=== PATIENT | male | born 1955 | race Caucasian/White ===

== ENCOUNTER 2024-12-19 08:03 | Emergency (ER) | payer MEDICARE, SELFPAY ==
--- OUTSIDE RECORDS SUMMARY | 2024-12-19 08:09 | XMS_ITS | Clinical Summary ---
Author Organization [facility] Address [address] [place] [address] Care Team Providers Care Nail Expert Name Role Phone Moreno Reyes MD Primary Care Provider [phone] Medications amLODIPine (NORVASC) 10 mg tablet Take 1 tablet (10 mg total) by mouth daily Active atorvastatin (LIPITOR) 40 mg tablet Take 2 tablets (80 mg total) by mouth nightly Active gabapentin (NEURONTIN) 400 mg capsule Take 1 capsule (400 mg total) by mouth 3 (three) times a day 11/11/2023 Active losartan (COZAAR) 100 mg tablet Take 1 tablet (100 mg total) by mouth daily 08/08/[address] (PROTONIX) 40 mg EC tablet Take 1 tablet (40 mg total) by mouth nightly Active Active Problems Problem Noted Date Diagnosed Date Discitis of lumbar region 11/13/2023 Assessment & Plan (11/26/2023 8:21 PM CDT): Improving with no current indication of infection, abx complete, continue PT/OT, supportive care, increase mobility as tolerated, f/u ID and neurology Continue PRN oxycodone and tylenol Assessment & Plan (11/15/2023 9:06 AM CDT): Has completed antibiotics and steroids. Now with residual weakness and we will be doing physical and occupational therapy. Infectious Disease follow up as planned. Nurse practitioner discontinued 1 pain medication but we will continue with others Assessment & Plan (11/13/2023 9:08 PM CDT): Repeat MRI prior to hospital DC with decrease in disc space fluid levels and no intervertebral inflammation, completed IV ceftriaxone and flagyl, not currently on abx, ID f/u scheduled, continue PT/OT, pain control Lumbar epidural injection at [facility] 11/03 Steroid taper complete Type 2 diabetes mellitus wit hout complication, without long-term current use of insulin 11/13/2023 Assessment & Plan (11/26/2023 8:22 PM CDT): Continue farxiga and bydureon per home meds, glucose logs reviewed and stable Assessment & Plan (11/15/2023 9:05 AM CDT): Stable for now. Continues on Farxiga and Bydureon. Might need to resume sliding scale or even basal insulin but we will see how he fares now that he is off steroids and antibiotics. Assessment & Plan (11/13/2023 9:12 PM CDT): Currently on bydureon, rybelsus and farxiga, glucose 344 this am with recent steroid taper, likely will need to resume SSI, consider basal dosing, monitor for now H/O gastric sleeve 11/13/2023 Assessment & Plan (11/13/2023 9:09 PM CDT): 2022; 120lb weight loss, intermittent diarrhea on cholestyramine, continue PT/OT Gastroesophageal reflux disease without esophagi tis 11/13/2023 Assessment & Plan (11/13/2023 9:08 PM CDT): Stable, continue PPI Mixed hyperlipidemia 11/13/2023 Assessment & Plan (11/13/2023 9:11 PM CDT): No statin noted on med list, LDL 71, total chol 139 one year ago, continue heart healthy diet with exercise as tolerated given HA1C of 11.3% MANAV (obstructive sleep apnea) 11/13/2023 Assessment & Plan (11/26/2023 8:22 PM CDT): Continue cpap per home settings Assessment & Plan (11/13/2023 9:13 PM CDT): Continue cpap per home settings History of cholecystectomy 11/13/2023 Assessment & Plan (11/26/2023 8:17 PM CDT): Stable, recovered, continue to monitor Assessment & Plan (11/15/2023 9:05 AM CDT): Recent cholecystectomy in September. Seems to be stable. Assessment & Plan (11/13/2023 9:10 PM CDT): Sudden onset RUQ pain, uncomplicated lap [place] 09/22, asymptomatic today with benign abd exam, f/u GI Depression with anxiety 11/13/2023 Assessment & Plan (11/26/2023 8:17 PM CDT): Stable on effexor per home med regimen, continue Assessment & Plan (11/15/2023 9:06 AM CDT): Possible exacerbation from recent illness and hospital and SNF stays. We will continue Effexor Assessment & Plan (11/13/2023 9:04 PM CDT): Continue effexor per home med, mood and affect appropriate today, sleeping well, pain is controlled, 6 supportive sisters Primary hypertension 11/13/2023 Assessment & Plan (11/26/2023 8:22 PM CDT): Stable on home meds norvasc and losartan, continue Assessment & Plan (11/15/2023 9:06 AM CDT): Stable. Continue pain control and continue amlodipine and losartan. Assessment & Plan (11/13/2023 9:15 PM CDT): Continue norvasc 10mg daily, losartan 100mg daily for BP goal <140/<90 Weakness of both legs 11/13/2023 Assessment & Plan (11/15/2023 9:06 AM CDT): Likely related to debility from recent hospital stays and diskitis. Physical and occupational therapy Assessment & Plan (11/13/2023 9:14 PM CDT): Improving, intermittent R gluteal pain/spasms, continue PT/OT, gabapentin, dilaudid, naproxen; plans to decrease dosage and frequency of dilaudid as tolerated, narcan avaialble Multiple falls 11/13/2023 Lumbar radiculopathy 11/13/2023 Assessment & Plan (11/26/2023 8:21 PM CDT): Improving with intermittent spasms to R buttock and thigh, continue PT/OT, supportive care, multimodal pain control H/O ventral hernia repair 11/13/2023 History of bilateral knee replacement 11/13/2023 Diarrhea due to drug 11/13/2023 Assessment & Plan (11/15/2023 9:07 AM CDT): Was likely due to antibiotics. Continue with Florastor and Questran. 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 Gender Identity Not on file Sexual Orientation Not on file Last Filed Vital Signs Vital Sign Reading Time Taken Comments Blood Pressure - - Pulse 76 11/15/2023 9:04 AM CDT Temperature - - Respiratory Rate 22 11/15/2023 9:04 AM CDT Oxygen Saturation - - Inhaled Oxygen Concentration - - Weight 105.7 kg (233 lb) 03/13/2024 11:55 AM EDITOR MANAGING NEWSPAPER Height 177.8 cm (5' 10) 03/13/2024 11:55 AM EDITOR MANAGING NEWSPAPER Body Mass Index 33.43 03/13/2024 11:55 AM EDITOR MANAGING NEWSPAPER Plan of Treatment Health Maintenance Due Date Last Done Comments Albumin Creatinine Ratio, Urine 1955 Colon Cancer Screening-Colonoscopy 1955 Depression Screening 1955 Fall Risk Assessment 1955 Hepatitis C Screening 1955 eGFR 1955 Dilated Eye Exam 1955 Foot Exam 1955 Lipid Panel 1955 DTaP/Tdap/Td Vaccine (1 - Tdap) 1965 Hepatitis B Screening 1972 Pneumococcal vaccine 65+ (1 of 2 - PCV) 1973 Zoster Vaccine (1 of 2) 2004 Well Visit 65+ 10/07/2019 Hemoglobin A1C 03/23/2024 09/21/2023 Influenza Vaccine (#1) 2024 11/21/2018, 2016 Abdominal Aortic Aneurysm (A AA) Screen Completed 10/30/2023, 10/03/2023, 09/20/2023 Insurance [employer] MEDICARE PPO [employer] PPO Care Teams Nail Expert Relationship Specialty Start Date End Date Moreno Reyes MD [address] [place] [address] PCP - General Family Medicine 12/21/23
--- OUTSIDE RECORDS SUMMARY | 2024-12-19 08:09 | XMS_ITS | Encounter Summary ---
Author Organization [facility] Address [address] [place] [address] Care Team Providers Care Dock Operator Name Role Phone Asif Leal MD Primary Care Provider [phone] Reason for Visit * Reason Onset Date Comments Lumbar Radiculopathy 10/31/[address] SNELL ON CELL Encounter Details Date Type Department Care Team (Late st Contact Info) Description 10/31/2023 Telephone [facility] Admitting [address] [place] [address] [place] [address] [facility] [address] [place] [address] Lumbar Radiculopathy (SPOKE W DR. SNELL ON CELL) Social History Tobacco Use Types Packs/Day Years Used Date Smoking Tobacco: Former Cigars Smokeless Tobacco: Never Comments:occassional Alcohol Use Standard Drinks/Week Comments Yes 0 (1 standard drink = 0.6 oz pur e alcohol) occasionally,RARE Feeling Safe Answer Date Recorded Are you in a relationship wi th someone who hurts you emotionally and/or physically? 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 diff 11/01/2023 11/01/2023 11/01/2023 6:21 PM CDT documented as of this encounter Care Teams Dock Operator Relationship Specialty Start Date End Date Asif Leal MD PCP - General Student in an Organized Health Care Education/Training Program 01/02/18 documented as of this encounter
--- OUTSIDE RECORDS SUMMARY | 2024-12-19 08:09 | XMS_ITS | Encounter Summary ---
Author Organization [facility] Address 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 [address] [email or web address] Peripheral Venous Study Patient: Lul Yoder Study ID: BLOOD FLOW STUDY Gender: Sania : 1955 Age: 52 years Race: 1 Room: Bed: Height: Study Date: October 01, 2008 Patient status: Outpatient Weight: Access. #: [id number] POC: Beef Specialist: Nayan Ordering: Consuelo Attending MD: Consuelo Michel MD: Consuelo SUMMARY: There was no evidence of deep vein thrombosis of the left lower extremity veins. COMPARISONS No previous study is available for comparison. HISTORY AND INDICATIONS: INDICATIONS: Left lower extremity pain. HISTORY: Risk factors and comorbidity: No previous deep vein thrombosis. PROCEDURE INFORMATION: PROCEDURE PERFORMED: Complete color duplex study with imaging and spectral analysis was performed on the left lower extremity venous system. PROCEDURE DETAIL: This was an outpatient procedure. LEFT DUPLEX DATA Common femoral Patency/occlusion: Patent Flow pattern: Phasic Competence test: Competent B-mode compressibility: Normal Augmentation: Present Comments: No evidence of echogenic material Superficial femoral Patency/occlusion: Patent Flow pattern: Phasic Competence test: Competent B-mode compressibility: Normal Augmentation: Present Comments: no evidence of echogenic material Popliteal Patency/occlusion: Patent Flow pattern: Phasic Competence test: Competent B-mode compressibility: Normal Augmentation: Present Comments: no evidence of echogenic material Peroneal Patency/occlusion: Patent Flow pattern: -- Competence test: -- B-mode compressibility: Normal Augmentation: -- Comments: no evidence of echogenic material Posterior tibial Patency/occlusion: Patent Flow pattern: -- Competence test: -- B-mode compressibility: Normal Augmentation: -- Comments: no evidence of echogenic material There was no evidence of deep vein thrombosis of the left lower extremity veins. Prepared and Electronically Authenticated Carlos Joyce MD Confirmed October 01, 2008 18:21:10 Procedure Note Provider, Historical - 10/01/2008 [place] [address] [place] [address] [email or web address] Peripheral Venous Study Patient: Lul Yoder Study ID: BLOOD FLOW STUDY Gender: M : 1955 Age: 52 years Race: 1 Room: Bed: Height: Study Date: October 01, 2008 Patient status: Outpatient Weight: Access. #: [id number] POC: Beef Specialist: Nayan Ordering: Consuelo Ji MD: Consuelo Michel MD: Consuelo SUMMARY: There was no evidence of deep vein thrombosis of the left lower extremityveins. COMPARISONS No previous study is available for comparison. HISTORY AND INDICATIONS: INDICATIONS: Left lower extremity pain. HISTORY: Risk factors and comorbidity: No previous deep vein thrombosis. PROCEDURE INFORMATION: PROCEDURE PERFORMED: Complete color duplex study with imaging and spectral analysis wasperformed on the left lower extremity venous system. PROCEDURE DETAIL: This was an outpatient procedure. LEFT DUPLEX DATA Common femoral Patency/occlusion: Patent Flow pattern: Phasic Competence test: Competent B-mode compressibility: Normal Augmentation: Present Comments: No evidence of echogenic material Superficial femoral Patency/occlusion: Patent Flow pattern: Phasic Competence test: Competent B-mode compressibility: Normal Augmentation: Present Comments: no evidence of echogenic material Popliteal Patency/occlusion: Patent Flow pattern: Phasic Competence test: Competent B-mode compressibility: Normal Augmentation: Present Comments: no evidence of echogenic material Peroneal Patency/occlusion: Patent Flow pattern: -- Competence test: -- B-mode compressibility: Normal Augmentation: -- Comments: no evidence of echogenic material Posterior tibial Patency/occlusion: Patent Flow pattern: -- Competence test: -- B-mode compressibility: Normal Augmentation: -- Comments: no evidence of echogenic material There was no evidence of deep vein thrombosis of the left lowerextremity veins. Prepared and Electronically Authenticated Carlos Joyce MD Confirmed October 01, 2008 18:21:10 Avi Rodney II, MD ORDERABLES Final Result documented in this encounter Visit Diagnoses Not on filedocumented in this encounter Additional Health Concerns Infection Onset Date Last Indicated Resolved Time R/O C. diff 10/04/2023 10/05/2023 10/05/2023 2:26 PM CDT R/O GI Pathogen 10/05/2023 10/05/2023 10/05/2023 3 :44 PM CDT R/O C. diff 11/01/2023 11/01/2023 11/01/2023 6:21 PM CDT documented as of this encounter Care Teams Blanket Maker Relationship Specialty Start Date End Date Asif Leal MD PCP - General Student in an Organized Health Care Education/Training Program 01/02/18 documented as of this encounter
--- OUTSIDE RECORDS SUMMARY | 2024-12-19 08:09 | XMS_ITS | Encounter Summary ---
Author Organization [facility] Address [address] [place] [address] Care Team Providers Care Collection Systems Administrator Name Role Phone Asif Leal MD Primary Care Provider [phone] Reason for Visit * Reason Onset Date Comments : 67 M, poorly controlled DM , please review 09/22/2023 SPOKE WITH / DR. RIGGS CELLPH ONE Encounter Details Date Type Department Care Team (Late st Contact Info) Description 09/22/2023 Telephone [facility] Admitting [address] [place] [address] [place] [address] [place] [address] : 67 M, poorly controlled DM, please review (SPOKE WITH / DR. RIGGS CELLPHONE) Social History Tobacco Use Types Packs/Day Years Used Date Smoking Tobacco: Former Cigars Smokeless Tobacco: Never Comments:occassional Alcohol Use Standard Drinks/Week Comments Yes 0 (1 standard drink = 0.6 oz pur e alcohol) occasionally,RARE Feeling Safe Answer Date Recorded Are you in a relationship wi th someone who hurts you emotionally and/or physically? 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
--- OUTSIDE RECORDS SUMMARY | 2024-12-19 08:09 | XMS_ITS | Clinical Summary ---
Author Organization [employer] Francisco J Burgos Address [address] [facility] [place] [address] Phone Care Team Providers Care Data Collection Specialist Name Role Phone Asif Leal MD Primary Care Provider [phone] Allergies No known active allergies Medications BYDUREON 2 mg/0.65 mL Pen Injector INJECT 0.65 ML EVERY WEEK BY SUBCUTANEOUS ROUTE every tuesday 5 7 Active amLODIPine (NORVASC) 10 mg tablet Take 1 Tablet by mouth daily at bedtime. 4 Active losartan (COZAAR) 100 mg tablet Take 1 Tablet by mouth daily in the morning. 4 Active pantoprazole (PROTONIX) 40 mg Tablet, Delayed Release (E.C.) Take 1 Tablet by mouth daily. Active HYDROmorphone (DILAUDID) 2 mg tabletIndicatio ns:Lumbar radiculopathy,D iscitis of lumbar region Take 1 Tablet (2 mg) by mouth every 4 hours as needed for Moderate Pain. Max Daily Amount: 12 mg 20 Tablet 10/13/2023 11:11 AM CDT 4 Active venlafaxine (EFFEXOR XR) 75 mg Extended Release 24 hour capsule Take 1 Capsule (75 mg) by mouth daily. 30 Capsule 1 10/13/2023 11:11 AM CDT 4 Active naloxone (NARCAN) 4 mg/spray [place], Non-Aerosol EMERGENCY USE ONLY: Administer 1 spray (4 mg) in one nostril one time. May repeat in alternating nostrils every 2-3 min until responsive or EMS arrives. 2 Each 3 4 Active oxyCODONE (ROXICODONE) 10 mg tabletIndicatio ns:Subacute osteomyelitis, other site (CMS/HCC) Take 1 Tablet (10 mg) by mouth every 6 hours as needed for Pain. Max Daily Amount: 40 mg 28 Tablet 11/11/2023 2:28 PM CDT Active dapagliflozin propanediol (Farxiga) 10 mg Tablet Take 10 mg by mouth daily. Active semaglutide (Rybelsus) 3 mg Tablet Take 3 mg by mouth daily. Active Active Problems Problem Noted Date Diagnosed Date Uncontrolled type 2 diabetes mellitus with hyper glycemia 10/28/2023 Abnormal LFTs 10/28/2023 Lumbar radiculopathy 10/05/2023 Discitis 10/04/2023 Assessment & Plan (2023 8:43 AM CDT): L5-S1. Neurologically stable. It is not uncommon for imaging to look worse during the healing phases of discitis and osteomyelitis. CRP has been trending down nicely. Currently no acute indications to repeat any imaging. Would recommend continuation of antibiotics per infectious disease. Should his presentation change i.e. weakness paresthesias or radicular component then further advanced imaging of the lumbar spine form of an MRI with and without contrast would be reasonable. Neurosurgically stable for discharge when okay with [facility]. consultants. Neurosurgery signed off. Please reconsult or call if you have any questions or concerns. Follow-up in the office in 4 weeks. Assessment & Plan (10/05/2023 9:38 AM CDT): L5-S1. Neurologically stable. It is not uncommon for imaging to look worse during the healing phases of discitis and osteomyelitis. Currently no acute indications to repeat any imaging. Would recommend continuation of antibiotics per infectious disease. Should his presentation change i.e. weakness paresthesias or radicular component then further advanced imaging of the lumbar spine form of an MRI with and without contrast would be reasonable. Acute diarrhea 10/04/2023 Assessment & Plan (2023 8:42 AM CDT): Most likely secondary to IV antibiotics as well as recent cholecystectomy. Has seemed to have some benefit after changing the IV antibiotics. Only had 1 loose stool yesterday as opposed to several throughout the day prior to antibiotic changes. Continue to follow. Appreciate input from infectious disease. Assessment & Plan (10/05/2023 9:38 AM CDT): Most likely secondary to IV antibiotics as well as recent cholecystectomy. Has seemed to have some benefit after changing the IV antibiotics. Continue to follow. Appreciate input from infectious disease. Acute cholecystitis 09/22/2023 Subacute osteomyelitis, other site 09/21/2023 Assessment & Plan (2023 8:42 AM CDT): L5-S1. As above. Assessment & Plan (10/05/2023 9:38 AM CDT): L5-S1. As above. RUQ abdominal pain 09/21/2023 Leukocytosis (leucocytosis) 09/21/2023 Hyponatremia 09/21/2023 Lung nodule 09/21/2023 Hyperlipidemia 09/21/2023 GERD (gastroesophageal reflux disease) H/O total knee replacement, right 01/02/2018 Atrophy of quadriceps femoris muscle 01/02/2018 Status post total shoulder replacement, left Status post total left knee replacement using ce ment 07/26/2016 Quadriceps weakness 07/26/2016 Tobacco use 06/23/2016 Primary osteoarthritis of left knee 05/17/2016 Morbid obesity with BMI of 40.0-44.9, adult 04/0 04/2016 Localized osteoarthritis of left knee 08/05/2014 Osteoarthritis of left shoulder 08/05/2014 Ventral hernia, s/p repair on 12/18/13 11/27/2013 Incarcerated ventral hernia 10/30/2013 HTN (hypertension) 10/20/2010 Diabetes mellitus 10/20/2010 Nausea 10/20/2010 MANAV (obstructive sleep apnea) 10/20/2010 Edema 10/20/2010 MANAV on CPAP Tobacco use disorder, mild, abuse Resolved Problems Problem Noted Date Diagnosed Date Resolved Date Discitis of thoracic region 09/21/2023 10/04/2023 Assessment & Plan (09/21/2023 9:11 AM CDT): Findings indicative of osteomyelitis discitis at L5-S1. No obvious phlegmon. No evidence of obvious neurologic compression on sagittal imaging. (Repeat MRI once pain control would be of benefit to ensure that there is no underlying pathology on axial cuts). Currently physical exam does not support any neurologic compression. Had a lengthy discussion with the patient he understands that this is a long-term process and will require long-term IV antibiotics as well as probable PICC line. Blood cultures are pending. Infectious disease official consultation pending. No acute neurosurgical indications at this time. Will continue to follow. Encounters Date Type Department Care Team Description 10/30/2024 External Device Data [facility]STRACTION Provider, Abstract 10/23/2024 External Device Data [facility] Provider, Abstract 10/23/2024 External Device Data [facility] Provider, Abstract 10/16/2024 External Device Data [facility] Provider, Abstract 09/25/2024 External Device Data [facility] Provider, Abstract 09/25/2024 External Device Data [facility] Provider, Abstract 09/25/2024 External Device Data [facility] Provider, Abstract 09/19/2024 External Device Data [facility]STRACTION Provider, Abstract from Last 3 Months Immunizations Immunization Administration Dates Next Due Influenza Seasonal Unspecified Formulation IM Family History Medical History Relation Name Comments Colon Cancer Neg Hx Esophageal Cancer Neg Hx Gastric Cancer Neg Hx Liver Cancer Neg Hx Pancreatic Cancer Neg Hx Social History Tobacco Use Types Packs/Day Years Used Date Smoking Tobacco: Former Cigars Smokeless Tobacco: Never Tobacco Cessation:Counseling Given: Not Answered Comments:occassional Alcohol Use Standard Drinks/Week Comments Yes 0 (1 standard drink = 0.6 oz pur e alcohol) occasionally,RARE Feeling Safe Answer Date Recorded Are you in a relationship wi th someone who hurts you emotionally and/or physically? No 10/27/2023 Food Insecurity Answer Date Recorded Patient needs follow up regardin 06/16/2024 Transportation Needs Answer Date Record ed Patient needs follow up regardin 06/16/2024 Housing Stability Answer Date Recorded Social/Environmental Concerns No concerns Utility Needs Answer Date Recorded Patient needs follow up regardin 06/16/2024 Sex and Gender Information Value Date Recorded Sex Assigned at Not on file Legal Sex Male 5:46 AM [employer] Gender Identity Not on file Sexual Orientation Not on file Occupation Industry Job Start Date Job End Date Not on file Not on file Not on file Not on file Last Filed Vital Signs Vital Sign Reading Time Taken Comments Blood Pressure 135/52 11/11/2023 8:00 AM CDT Pulse 60 11/11/2023 8:00 AM CDT Temperature 36.6 C (97.9 F) 11/11/2023 8:00 AM CDT Respiratory Rate 20 11/11/2023 8:00 AM CDT Oxygen Saturation 99% 11/11/2023 8:00 AM CDT Inhaled Oxygen Concentration - - Weight 97.8 kg (215 lb 9.6 oz) 10/28/2023 11:00 AM CDT Height 175.3 cm (5' 9) 10/27/2023 9:39 PM CDT Body Mass Index 31.84 10/27/2023 9:39 PM CDT Plan of Treatment Health Maintenance Due Date Last Done Comments DIABETES ANNUAL FOOT EXAM 1972 DIABETES ANNUAL RETINAL EXAM 1972 DIABETES MICROALBUMIN ANNUAL SCREEN 1972 LDL CHOLESTEROL ANNUAL 1972 DTAP/TDAP/TD VACCINES (1 - Tdap) 1973 PNEUMOCOCCAL VACCINE 50+ YEA RS (1 of 2 - PCV) 1973 COLORECTAL SCREENING 10/07/1999 Colorectal Cancer Screening 10/07/1999 FIT-DNA Q 3 years 10/07/1999 FIT/FOBT Q 1 year 10/07/1999 Flex Sig/CT Colonography Q 5 years 10/07/1999 RSV VACCINE (60+ or ) (1 - Risk 50-74 years 1-dose series) 2004 ZOSTER VACCINE (1 of 2) 2004 DIABETES HBA1C Q 6 MONTHS 03/23/20242023, 06/23/2016, 10/05/2010 INFLUENZA VACCINE (#1) 2024 11/21/2018, 2016 Medical Devices Implanted Type Area Outside Collector Device Identifier Shelf Expiration Date Model / Serial / Lot Log [id number] - Cement - 1 - Cement Pacolet G-Hv 40g [id number] Implanted:Qty : 1 on 10/20/2010 at [facility] Cement Right: Knee [employer] 02/15/2012 [id number] / / [id number] Log 120230 - Cement - 1 - Cement Pacolet G-Hv 40g [id number] Implanted:Qty : 1 on 10/20/2010 at [facility] Cement Right: Knee [employer] 02/15/2012 [id number] / / [id number] Cement Pacolet Hv 40g [id number] - [id number] Implanted:Qty : 1 on 06/22/2016 by Sage Mack MD at [facility] Cement Left: Knee [employer] 02/13/2018 [id number] / / [id number] Cement Pacolet G-Hv 40g 248763 - [id number] Implanted:Qty : 1 on 01/12/2017 by Regis Fallon MD at [facility] Cement Left: Shoulder [employer] application dba [employer] 06/13/2018 [id number] / / [id number] Clip Hemolok Lrg [id number] - Csc - [id number] Implanted:Qty : 1 on 09/23/2023 by Diego Issa MD at [facility] N/A: Abdomen TELEFLEX- WECK CLOSURE SYS 06/14/2027 [id number] / / [id number] Human Projectile Endoclip Iii 5mm W/Cliplogic [id number] - [id number] Implanted:Qty : 1 on 09/23/2023 by Diego Issa MD at [facility] N/A: Bile Duct MEDTRONIC - COVIDIEN 06/13/2026 [id number] / / [id number] Log [id number] - Biomet Vanguard Complete Knee System - 1 - Comp Fem Vngrd Cr Intrlk Rt 70mm [id number] Implanted:Qty : 1 on 10/20/2010 at [facility] Knee Right: Knee [employer] 08/14/2020 [id number] / / [id number] Log [id number] - Biomet Vanguard Complete Knee System - 1 - Plate Tib Cocr Finned 79mm [id number] Implanted:Qty : 1 on 10/20/2010 at [facility] Knee Right: Knee [employer] 04/14/2020 [id number] / / [id number] Comp Fem Vngrd Cr Intrlk Lt 70mm 406297 - [id number] Implanted:Qty : 1 on 06/22/2016 by Sage Mack MD at [facility] Knee Left: Knee [employer] 05/04/2026 [id number] / / [id number] Comp Tib Cocr Finned 79mm 194748 - [id number] Implanted:Qty : 1 on 06/22/2016 by Sage Mack MD at [facility] Knee Left: Knee [employer] 03/05/2026 [id number] / / [id number] Brng Tib Vng Cr 10x79/83 569859 - [id number] Implanted:Qty : 1 on 06/22/2016 by Sage Mack MD at [facility] Knee Left: Knee [employer] 05/06/2021 [id number] / / [id number] Mesh Ventralex 1.7in Circ [id number] - [id number] Implanted:Qty : 1 on 12/17/2013 by Aaliyah Tsang MD at [facility] Mesh N/A: Abdomen CR BARD- [employer] INC 09/14/2015 [id number] / / [id number] Pin Steinmann Thrd 3.2wya2ts [id number] - [id number] Implanted:Qty : 1 on 01/12/2017 by Regis Fallon MD at [facility] Pin Left: Shoulder JENNI BIOMET [id number] / / [id number] Base Hybrid [id number] 265939 - [id number] Implanted:Qty : 1 on 01/12/2017 by Regis Fallon MD at [facility] Shoulder Left: Shoulder JENNI BIOMET 10/22/2021 [id number] / / [id number] Post Glnd Mod Hybrid Regenerex Pt-[id number] - [id number] Implanted:Qty : 1 on 01/12/2017 by Regis Fallon MD at [facility] Shoulder Left: Shoulder JENNI BIOMET 10/22/2026 [id number] / / [id number] Head Hum Versa-Dial 593139 - [id number] Implanted:Qty : 1 on 01/12/2017 by Regis Fallon MD at [facility] Shoulder Left: Shoulder JENNI BIOMET [id number] 09/30/2026 [id number] / / [id number] Stem Hum Comp Mini 13mm 277841 - [id number] Implanted:Qty : 1 on 01/12/2017 by Regis Fallon MD at [facility] Shoulder Left: Shoulder JENNI BIOMET [id number] 12/17/2026 [id number] / / [id number] Description:All Biomet recon shoulder components are processed on requisition,[id number]. Adaptor Hum Versa-Dial Tpr 977064 - [id number] Implanted:Qty : 1 on 01/12/2017 by Regis Fallon MD at [facility] Shoulder Left: Shoulder JENNI BIOMET [id number] 11/10/2026 [id number] / / [id number] E-Poly Implanted:Qty : 1 on 10/20/2010 at [facility] Right: Knee [employer] INC 02/14/2015 [id number] / / [id number] Description:Epoly tibial felix ring is not part of total knee cap pricing,will be charged separately. Procedures Procedure Name Priority Date/Time Associated Diagnosis Comments HEMOGLOBIN A1C Routine 09/21/2023 9:03 AM CDT from Last 3 Months or Most Recently Relevant to Health Maintenance Results * (ABNORMAL) HEMOGLOBIN A1C (09/21/2023 9:03 AM CDT) HEMOGLOBIN A1C 11.3(H) <=5.6 % 09/21/2023 10:51 AM CDT [facility] EST. AVG GLUCOSE, A1C 278 mg/dL 09/21/2023 10:51 AM CDT [facility] Blood Venipuncture / Unknown 09/21/2023 9:03 AM CDT 09/21/2023 9:30 AM CDT Narrative [facility] - 09/21/2023 10:51 AM CDT HGB A1C INTERPRETATION NORMAL: <5.7% PRE-DIABETES: 5.7 - 6.4% DIABETES: 6.5% OR GREATER Denise MARLEY CHEMISTRY ORDERABLES Final Result [facility]# [id number] [address] from Last 3 Months or Most Recently Relevant to Health Maintenance Insurance AETNA PPO MCR RX AETNA Medicare Part D RX [employer] (INTERNAL) [facility] Advance Directives For more information, please contact: [phone] * Full Code (Latest Code Status on File) Date Activated Date Inactivated Comments 10/27/2023 8:53 PM 11/11/2023 5:05 PM * Full Code Date Activated Date Inactivated Comments 10/04/2023 9:51 PM 10/13/2023 2:10 PM * Full Code Date Activated Date Inactivated Comments 09/21/2023 10:28 AM 09/29/2023 6:07 PM * Default Full Code - Needs Discussion Date Activated Date Inactivated Comments 09/21/2023 2:38 AM 09/21/2023 10:28 AM * Full Code Date Activated Date Inactivated Comments 01/12/2017 2:56 PM 01/13/2017 4:46 PM Care Teams Data Collection Specialist Relationship Specialty Start Date End Date Asif Leal MD PCP - General Student in an Organized Health Care Education/Training Program 01/02/18
--- OUTSIDE RECORDS SUMMARY | 2024-12-19 08:09 | XMS_ITS | Clinical Summary ---
Author Organization [facility] Address [address] [place] [address] Care Team Providers Care Electrical Automation Engineer Name Role Phone Moreno Reyes MD Primary Care Provider [phone] Allergies No known active allergies Medications losartan (COZAAR) 100 MG tablet Take 1 tablet (100 mg) by mouth every morning Active acetaminophen (TYLENOL) 500 MG tablet Take 1 tablet (500 mg) by mouth every 6 (six) hours if needed for Pain Active triamcinolone (KENALOG) 0.1 % creamIndications:Pa ronychia of left ring finger APPLY A THIN LAYER TO AFFECTED AREA(S) TWICE DAILY 454 g 2 5 07/31/19 26 Active amLODIPine (NORVASC) 10 MG tabletIndications:P rimary hypertension Take 1 tablet (10 mg) by mouth daily 90 tablet 3 5 07/31/19 26 Active atorvaSTATin (LIPITOR) 80 MG tabletIndications:H yperlipidemia, unspecified hyperlipidemia type Take 1 tablet (80 mg) by mouth daily 90 tablet 3 5 08/01/19 26 Active sildenafil citrate (VIAGRA) 100 MG tabletIndications:E rectile dysfunction, unspecified erectile dysfunction type Take 1 tablet (100 mg) by mouth daily as needed 30 tablet 5 01/15/20 25 Active Active Problems Problem Noted Date Diagnosed Date Nontraumatic incomplete tear of right rotator cu ff 09/20/2024 Status post reverse total shoulder replacement, right 07/12/2024 Tobacco use disorder, mild, abuse 06/06/2024 Primary osteoarthritis of right shoulder 025 Depression with anxiety 11/13/2023 Weakness of both legs 11/13/2023 Uncontrolled type 2 diabetes mellitus with hyper glycemia 10/28/2023 Gastroesophageal reflux disease without esophagi tis 09/21/2023 Morbid obesity with body mass index of 40.0-44.9 in adult 05/17/2016 MANAV on CPAP 10/20/2010 Primary hypertension 10/20/2010 Resolved Problems Problem Noted Date Diagnosed Date Resolved Date Biceps tendinitis on right 06/05/2024 0 06/14/2024 Nontraumatic incomplete tear of right rotator cuff 06/05/2024 06/14/2024 Discitis of lumbar region 11/13/2023 H/O gastric sleeve 11/13/2023 Multiple falls 11/13/2023 06/14/2024 H/O ventral hernia repair 11/13/2023 History of bilateral knee replacement 11/13/2023 06/14/2024 History of cholecystectomy 11/13/2023 0 06/14/2024 Abnormal LFTs 10/28/2023 06/14/2024 Lumbar radiculopathy 10/05/2023 025 Acute diarrhea 10/04/2023 06/14/2024 Acute cholecystitis 09/22/2023 06/15/19 25 Hyponatremia 09/21/2023 06/14/2024 Leukocytosis (leucocytosis) 09/21/2023 06/14/2024 Lung nodule 09/21/2023 06/14/2024 RUQ abdominal pain 09/21/2023 Subacute osteomyelitis, other site 09/21/2023 06/14/2024 Pneumothorax 01/06/2019 06/14/2024 Rib fracture 01/06/2019 06/14/2024 Trauma 01/02/2019 06/14/2024 Hyperlipidemia 01/01/2019 06/14/2024 Atrophy of quadriceps femoris muscle 01/02/2018 06/14/2024 H/O total knee replacement, right 01/02/2018 06/14/2024 Status post total shoulder replacement, left 7 06/14/2024 Quadriceps weakness 07/26/2016 06/15/19 25 Status post total left knee replacement using cement 07/26/2016 06/14/2024 Tobacco use 06/23/2016 06/14/2024 Localized osteoarthritis of left knee 08/05/2014 06/14/2024 Osteoarthritis of left shoulder 08/05/2014 06/14/2024 Incarcerated ventral hernia 10/30/2013 06/14/2024 Edema 10/20/2010 06/14/2024 Nausea 10/20/2010 06/14/2024 Type 2 diabetes mellitus wit hout complication, without long-term current use of insulin 10/20/2010 06/14/2024 Encounters Date Type Department Care Team Description 10/12/2024 Refill [facility] [address] [place] [address] [address] [place] [address] Moreno Reyes MD Medication Refill 09/20/2024 10:30 AM CDT Office Visit [facility] [address] [place] [phone] Taz Siu PA-C Status post reverse total shoulder replacement, right (Primary Dx); Primary osteoarthritis of right shoulder; Nontraumatic incomplete tear of right rotator cuff 09/20/2024 10:20 AM CDT Ancillary Procedure [facility] [address] [facility] [place] [address] Taz Siu PA-C Primary osteoarthritis of right shoulder; Status post reverse total shoulder replacement, right from Last 3 Months Immunizations Immunization Administration Dates Next Due Influenza Split Virus 12/31/2016 Family History Medical History Relation Name Comments Diabetes Sister Relation Name Status Comments Sister Social History Tobacco Use Types Packs/Day Years Used Date Smoking Tobacco: Former Cigarettes 0 Q uit: 03/23/1979 Cigars Smokeless Tobacco: Never Tobacco Cessation:Counseling Given: Yes Alcohol Use Standard Drinks/Week Comments Never 0 (1 standard drink = 0.6 oz pur e alcohol) [facility] Utilities Answer Date Recorded In the past 12 months has th e electric, gas, oil, or water company threatened to shut off services in your home? No 10/27/2023 Humiliation, Afraid, Rape, and Kick questionnair e Answer Date Recorded Within the last year, have y ou been afraid of your partner or ex-partner? No 10/27/2023 Within the last year, have y ou been humiliated or emotionally abused in other ways by your partner or ex-partner? No Within the last year, have y ou been kicked, hit, slapped, or otherwise physically hurt by your partner or ex-partner? No 10/27/2023 Within the last year, have y ou been raped or forced to have any kind of sexual activity by your partner or ex-partner? No 10/27/2023 Hunger Vital Sign Answer Date Recorded Within the past 12 months, y ou worried that your food would run out before you got the money to buy more. Never true 10/27/19 24 Within the past 12 months, t he food you bought just didn't last and you didn't have money to get more. Never true 10/27/2023 PRAPARE - Transportation Answer Date Re corded In the past 12 months, has l ack of transportation kept you from medical appointments or from getting medications? No 10/15 In the past 12 months, has l ack of transportation kept you from meetings, work, or from getting things needed for daily living? No 10/27/2023 Housing Stability Vital Sign Answer Bill e Recorded In the last 12 months, was t here a time when you were not able to pay the mortgage or rent on time? No 10/27/2023 Number of Places Lived in the Last Year Not on f ile 10/27/2023 In the last 12 months, was t here a time when you did not have a steady place to sleep or slept in a prison (including now)? No 10/27/2023 Alcohol Use Answer Date Recorded Frequency of Alcohol Consumption Not on file 10/03/2023 Average Number of Drinks Not on file 024 Frequency of Binge Drinking Not on file 09/14 Alcohol Use Status Never 10/03/2023 Average alcohol consumption Not on file 09/14 Sex and Gender Information Value Date Recorded Sex Assigned at Not on file Legal Sex Male 10:50 PM CDT Gender Identity Not on file Sexual Orientation Not on file Last Filed Vital Signs Vital Sign Reading Time Taken Comments Blood Pressure 118/78 09/20/2024 10:36 AM CDT Pulse 64 06/14/2024 10:34 AM CDT Temperature 36.8 C (98.2 F) 10/27/2023 4:02 PM CDT Respiratory Rate 17 12/12/2023 11:43 AM CDT Oxygen Saturation 98% 06/14/2024 10:34 AM CDT Inhaled Oxygen Concentration - - Weight 114.8 kg (253 lb) 09/20/2024 10:36 AM CDT Height 175.3 cm (5' 9) 09/20/2024 10:36 AM CDT Body Mass Index 37.36 09/20/2024 10:36 AM CDT Plan of Treatment Health Maintenance Due Date Last Done Comments DIABETIC FOOT EXAM 1955 Diabetic Eye Exam 1955 Hepatitis C Screening ages 18 to 79 once 1955 LIPID TESTING 1955 Medicare Annual Wellness (AWV) 1955 URINARY MICROALBUMIN IN DIABETES 1954 DEPRESSION SCREENING 1966 ADULT TETANUS 1973 Colon Cancer Screening 10/07/1999 Pneumococcal Vaccine: 50 and over (1 of 1 - PCV) 2004 Zoster Vaccine (Recombinant Vaccine) (1 of 2) 2004 Influenza Vaccine 09/14/2024 12/31/2016 Diabetes follow-up every 6 months by HEMOGLOBIN A1C 12/12/2024 06/12/2024 BMI Above/Below Normal Parameters 06/14/2025 06/14/2024, 06/14/2024 Fall Risk Assessment 09/20/2025 09/20/2024, 06/26/2024, 06/14/2024, Additional history exists RSV Vaccines (1 - 1-dose 75+ series) 2029 Abdominal Aortic Aneurysm Screening Ultrasound Completed 09/20/2023 COVID-19 Immunization Discontinued HEPATITIS A VACCINES Aged Out No long er eligible based on patient's age to complete this topic HEPATITIS B VACCINES Aged Out No long er eligible based on patient's age to complete this topic HIB VACCINES Aged Out No longer eligi ble based on patient's age to complete this topic HPV VACCINES Aged Out No longer eligi ble based on patient's age to complete this topic IPV VACCINES Aged Out No longer eligi ble based on patient's age to complete this topic MENINGOCOCCAL VACCINE Aged Out No ryan tramaine eligible based on patient's age to complete this topic Meningococcal B Vaccine Aged Out No l onger eligible based on patient's age to complete this topic ROTAVIRUS VACCINES Aged Out No longer eligible based on patient's age to complete this topic Procedures Procedure Name Priority Date/Time Associated Diagnosis Comments XR SHOULDER RIGHT 3 VIEWS Routine 09/20/2024 10:35 AM CDT 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 The shoulder prosthesis components are articulating appropriately with no signs of loosening and no periprosthetic fracture noted. No soft tissue abnormalities. The images were personally reviewed by myself COMMENTS: For additional information on recommendations, please see office note. Narrative 09/20/2024 10:48 AM CDT IMAGING PROCEDURE: XR SHOULDER RIGHT 3+ VIEWS INDICATION: Primary osteoarthritis of right shoulder, Status post reverse total shoulder replacement, right Taz Siu PA-C [facility] IMG DIAG ORDERABLES Final Result * (ABNORMAL) HEMOGLOBIN A1C (06/12/2024 11:58 AM CDT) Hemoglobin A1C 10.1(H) 4.0 - 6.0 % [facility] Estimated Average Glucose 243(H) 68 - 114 MG/DL [facility] 06/12/2024 11:5 8 AM CDT 06/12/2024 4:59 PM CDT Corey He MD CHEMISTRY ORDERABLES Final Resul t [facility] [address] [place] [address], [facility] [phone] * US ABDOMEN LIMITED (09/20/2023 2:40 PM CDT) Anatomical Region Laterality Modality Abdomen Other 09/20/2023 2:40 PM CDT Narrative 09/20/2023 4:21 [place] [address] [place] [address] IMAGING REPORT Name: NA YODER Room #: : 1955 Bed #: Age: 67 Years Patient Type: Outpatient Order Date/Time: [id number] Sex: M Admit Date/Time: Order#: Accession#: Exam Description: Admitting Diagnosis: [id number] US-ABDOMEN LTD Dictated By: Lazaro Trejo Ordering Physician: TRAY ARRIETA Attending Physician: TRAY ARRIETA Primary Care Physician: TRAY ARRIETA EXAMINATION: Focused sonographic evaluation of the abdomen CLINICAL HISTORY: 67 years Male,Abd pain without trauma/injury COMPARISON: CT of the abdomen and pelvis performed on the same day TECHNIQUE: Yoder scale, color Doppler and spectral Doppler sonographic imaging of the right upper quadrant of the abdomen . FINDINGS: Evaluation of the IVC, aorta and pancreas are compromised due to overlying bowel gas. The echogenicity of the liver is normal. The long axis of the liver measures 12.7 cm. There is no intrahepatic biliary ductal dilatation or focal mass within the liver. There is hepatopetal flow in the portal vein. There are multiple intraluminal filling defects, some of these are nonmobile along the dependent medial wall measure 0.4 cm in diameter. The Gallbladder wall thickness is 0.3 cm. There is no pericholecystic fluid.The common bile duct diameter is 0.4 cm. PAGE 1 OF 2 IMAGING REPORT Name: NA YODER Room #: : 1955 Bed #: Age: 67 Years Patient Type: Outpatient Order Date/Time: [id number] Sex: M The right kidney measures 11.3 cm in length. There is no nephrolithiasis, hydronephrosis, or solid mass. The color Doppler image appears normal. IMPRESSION: * Evaluation of the right upper quadrant is compromised due to overlying bowel gas. * Cholelithiasis without evidence of acute inflammatory change. If clinically warranted, hepatobiliary nuclear medicine scan may be of further benefit to evaluate for an cystic duct obstruction * Multiple gallbladder polyps, follow-up in six months would be of further benefit to ensure stability. Electronically signed by: Lazaro Trejo DO 09/20/2023 04:18 PM CDT PAGE 2 OF 2 Procedure Note Lazaro Trejo MD - 10/02/2023 [place], [place] [address] [place], [place] [id number] IMAGING REPORT Name: NA YODER Room #: : 1955 Bed #: Age: 67 Years Patient Type: Outpatient Order Date/Time: [id number] Sex: M Admit Date/Time: Order#: Accession#: Exam Description: Admitting Diagnosis: [id number] US-ABDOMEN LTD Dictated By: Lazaro Trejo Ordering Physician: TRAY ARRIETA Attending Physician: TRAY ARRIETA Primary Care Physician: TRAY ARRIETA EXAMINATION: Focused sonographic evaluation of the abdomen CLINICAL HISTORY: 67 years Male,Abd pain without trauma/injury COMPARISON: CT of the abdomen and pelvis performed on the same day TECHNIQUE: Yoder scale, color Doppler and spectral Doppler sonographic imaging of the right upper quadrant of the abdomen . FINDINGS: Evaluation of the IVC, aorta and pancreas are compromised due tooverlying bowel gas. The echogenicity of the liver is normal. The long axis of the liver measures 12.7 cm. There is no intrahepatic biliary ductal dilatation or focal mass within the liver. There is hepatopetal flow in the portalvein. There are multiple intraluminal filling defects, some of these are nonmobile along the dependent medial wall measure 0.4 cm in diameter.The Gallbladder wall thickness is 0.3 cm. There is no pericholecystic fluid.The common bile duct diameter is 0.4 cm. PAGE 1 OF 2 IMAGING REPORT Name: NA YODER Room #: : 1955 Bed #: Age: 67 Years Patient Type: Outpatient Order Date/Time: [id number] Sex: M The right kidney measures 11.3 cm in length. There is nonephrolithiasis, hydronephrosis, or solid mass. The color Doppler image appears normal. IMPRESSION: * Evaluation of the right upper quadrant is compromised due tooverlying bowel gas. * Cholelithiasis without evidence of acute inflammatory change. If clinically warranted, hepatobiliary nuclear medicine scan may be offurther benefit to evaluate for an cystic duct obstruction * Multiple gallbladder polyps, follow-up in six months would be offurther benefit to ensure stability. Electronically signed by: Lazaro Trejo DO 09/20/2023 04:18 PM ClinicIQP PAGE 2 OF 2 us Tray Arrieta DO [facility] ORDERABLES Devi l Result from Last 3 Months or Most Recently Relevant to Health Maintenance Insurance [employer] MEDICARE [employer] MEDICARE Care Teams Electrical Automation Engineer Relationship Specialty Start Date End Date Moreno Reyes MD [address] [place] [address] PCP - General Family Medicine 10/18/23
--- OUTSIDE RECORDS SUMMARY | 2024-12-19 08:09 | XMS_ITS | Encounter Summary ---
Author Organization [facility] Address [address] [place] [address] Care Team Providers Care Local Company Intermodal Truck Driver Name Role Phone Asif Leal MD Primary Care Provider [phone] Reason for Visit * Reason Onset Date Comments Possible L5-S1 discitis 09/21/2023 LEFT SEC URE CATRACHITO HICKEY / DR[facility] : Possible L5-S1 discitis; a ntibiotic recommendations 09/21/2023 SPOKE WITH IRON / DR. SALVADOR OWEN EXCHANGE presented to OSH w/ RUQ pain ; US showed cholelithiasis w/ g 09/21/2023 LEFT SECURE CATRACHITO HICKEY / DR. SP MCCLAIN Encounter Details Date Type Department Care Team (Late st Contact Info) Description 09/21/2023 Telephone [facility] Admitting [address] [place] [address] [place] [address] [place] [address] Possible L5-S1 discitis (LEFT SECURE CATRACHITO HICKEY / DR. [facility]); : Possible L5-S1 discitis; antibiotic recommendations (SPOKE WITH IRON / DR. BRADSHAW EXCHANGE); presented to OSH w/ RUQ pain; US showed cholelithiasis w/ g (LEFT SECURE CATRACHITO HICKEY / DR. 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
--- OUTSIDE RECORDS SUMMARY | 2024-12-19 08:09 | XMS_ITS | Encounter Summary ---
Author Organization [facility] Address [address] [place] [address] Care Team Providers Care Deliverer Food Name Role Phone Asif Leal MD Primary Care Provider [phone] Reason for Visit * Reason Onset Date Comments Admitted with lumbar osteo- developed MARCIAL 09/25/2023 Spoke w/ Karissa @ Dr. Justice monte Encounter Details Date Type Department Care Team (Late st Contact Info) Description 09/25/2023 Telephone [facility] Admitting [address] [place] [address] [place] [address] [place] [address] Admitted with lumbar osteo- developed MARCIAL (Spoke philip/ Karissa @ Dr. 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
--- OUTSIDE RECORDS SUMMARY | 2024-12-19 08:10 | XMS_ITS | Encounter Summary ---
Author Organization [facility] Address [address] [place] [address] Care Team Providers Care Memorial Designer Name Role Phone Dulce Maria Leal MD Primary Care Provider Un available Encounter Details Date Type Department Care Team (Late st Contact Info) Description 01/17/2019 Telephone [facility] General Surgery [address] [facility] [address] [place] [address] Acute Care Surgery, Pob Social History Tobacco Use Types Packs/Day Years Used Date Smoking Tobacco: Former Cigarettes 0 03/04/2005 - 03/05/2015 Smokeless Tobacco: Never Comments:1 cigar a week Alcohol Use Standard Drinks/Week Comments Not Asked 1 (1 standard drink = 0.6 oz pur e alcohol) Sex and Gender Information Value Date Recorded Sex Assigned at Not on file 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
--- OUTSIDE RECORDS SUMMARY | 2024-12-19 08:10 | XMS_ITS | Encounter Summary ---
Author Organization [facility] Address [address] [place] [address] Care Team Providers Care Investment Analyst Name Role Phone Dulce Maria Leal MD Primary Care Provider Un available Encounter Details Date Type Department Care Team (Late st Contact Info) Description 05/19/2022 Documentation [facility] [address] [place] [phone] Moreno Reyes MD [address] [place] [address], [place] [address] Social History Tobacco Use Types Packs/Day Years Used Date Smoking Tobacco: Former Cigarettes 0 03/04/2005 - 03/05/2015 Smokeless Tobacco: Never Comments:1 cigar a week Alcohol Use Standard Drinks/Week Comments Not Asked 1 (1 standard drink = 0.6 oz pur e alcohol) Sex and Gender Information Value Date Recorded Sex Assigned at Not on file 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
--- OUTSIDE RECORDS SUMMARY | 2024-12-19 08:10 | XMS_ITS | Clinical Summary ---
Author Organization [facility] Address [address] [place] [address] Care Team Providers Care Antenna Design Engineer Name Role Phone Macey Alvarez DO Primary Care Provider [phone] Social History Tobacco Use Types Packs/Day Years Used Date Smoking Tobacco: Never Assessed Sex and Gender Information Value Date Recorded Sex Assigned at Male 12/17/2024 8:33 AM QUALITY LEAD Legal Sex Male 1:05 PM CDT Gender Identity Not on file Sexual Orientation Not on file Plan of Treatment Upcoming Encounters Date Type Department Care Team (Late st Contact Info) Description 01/03/2025 7:40 AM QUALITY LEAD Office Visit [facility] Family & Internal Medicine [address] [phone] Macey Alvarez DO [address] [place] [address] Health Maintenance Due Date Last Done Comments Colorectal Cancer Screening Colonoscopy (10 Years) 1955 Hepatitis C 1972 DTaP, Tdap and Td Vaccines ( 1 - Tdap) 1973 Pneumococcal Vaccine: 50+ Ye ars (1 of 1 - PCV) 2004 Zoster Vaccines (1 of 2) 2004 Annual Medicare Wellness Visit 10/07/2019 COVID-19 Vaccine (1 - 2024-2 6 season) 2024 Influenza Adult (#1) 2024 RSV Immunization or 60+ Years (1 - 1-dose 75+ series) 2029 Hepatitis A Vaccines Aged Out No long er eligible based on patient's age to complete this topic Meningococcal B Vaccine Aged Out No l onger eligible based on patient's age to complete this topic Meningococcal Vaccine Aged Out No ryan tramaine eligible based on patient's age to complete this topic RSV Immunizations Under 20 Months Aged Out No longer eligible based on patient's age to complete this topic Insurance [facility] MEDICARE Care Teams Antenna Design Engineer Relationship Specialty Start Date End Date Macey Alvarez DO [address] [place] [address] PCP - General FAMILY PRACTICE 12/17/24
--- OUTSIDE RECORDS SUMMARY | 2024-12-19 08:10 | XMS_ITS | Clinical Summary ---
Author Organization [facility] althcare Address [address] [place] [address] Care Team Providers Care Print Support Specialist Name Role Phone Dulce Maria Leal MD Primary Care Provider Un available Allergies No known active allergies Medications atorvastatin (LIPITOR) 40 mg tablet Take 80 mg by mouth nightly Active canagliflozin (INVOKANA) 300 mg tablet Take 300 mg by mouth daily Active amLODIPine 5 mg tablet 10 mg, benazepril 10 mg tablet 20 mg Take 1 tablet by mouth daily Active metFORMIN XR (GLUCOPHATE-XR) 500 mg 24 hr tablet Take 500 mg by mouth daily with breakfast Active exenatide microspheres (BYDUREON) 2 mg/0.65 mL pen injector Inject 2 mg under the skin every 7 days 9 Active glimepiride (AMARYL) 2 mg tablet Take 4 mg by mouth every morning before breakfast Active hydroCHLOROthiazi de (MICROZIDE) 12.5 mg capsule Take 12.5 mg by mouth daily Active Active Problems Problem Noted Date Diagnosed Date Pneumothorax 01/06/2019 Rib fracture 01/06/2019 Trauma 01/02/2019 Family History Medical History Relation Name Comments Early Father Heart disease Father Diabetes Mother Early Mother Early Sister Hyperlipidemia Sister Hypertension Sister Relation Name Status Comments Father Mother Sister Social History Tobacco Use Types Packs/Day Years Used Date Smoking Tobacco: Former Cigarettes 0 03/04/2005 - 03/05/2015 Smokeless Tobacco: Never Tobacco Cessation:Counseling Given: No Comments:1 cigar a week Alcohol Use Standard Drinks/Week Comments Not Asked 1 (1 standard drink = 0.6 oz pur e alcohol) Sex and Gender Information Value Date Recorded Sex Assigned at Not on file Legal 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 Gender Identity Not on file Sexual Orientation Not on file Last Filed Vital Signs Vital Sign Reading Time Taken Comments Blood Pressure 128/68 01/06/2019 9:01 AM SUPERCALENDER OPERATOR Pulse 76 01/06/2019 7:33 AM SUPERCALENDER OPERATOR Temperature 36.6 C (97.9 F) 01/06/2019 7:33 AM SUPERCALENDER OPERATOR Respiratory Rate 22 01/06/2019 7:33 AM SUPERCALENDER OPERATOR Oxygen Saturation 92% 01/06/2019 7:51 AM SUPERCALENDER OPERATOR Inhaled Oxygen Concentration - - Weight 134 kg (295 lb 6.7 oz) 01/06/2019 6:07 AM SUPERCALENDER OPERATOR Height 175.3 cm (5' 9) 01/02/2019 11:35 PM SUPERCALENDER OPERATOR Body Mass Index 43.63 01/02/2019 11:35 PM SUPERCALENDER OPERATOR Plan of Treatment Health Maintenance Due Date Last Done Comments CT Colonography 1954 Colonoscopy 1954 Colorectal Cancer Screening 1954 FIT-DNA 1954 FIT 1954 FOBT 1954 Prostate Cancer Screening PSA 1954 Sigmoidoscopy 1954 Abdominal Aortic Aneurysm (AAA) Screen 1954 Depression Screening 1966 DTaP,Tdap,and Td Vaccines (1 - Tdap) 10/07/1975 AMB Pneumococcal 50+ yrs (1 of 1 - PCV) 2004 Zoster Series Vaccines (1 of 2) 2004 Fall Risk Assessment 10/07/2019 Medicare Annual Wellness Visit 10/07/2019 Advance Care Planning 02/15/2024 COVID-19 Vaccine (1 - season) 2024 Influenza Vaccine (#1) 2024 9, 12/01/2017, 12/16/2016, Additional history exists RSV Vaccines and 60 Years or Older (1 - 1-dose 75+ series) 2029 HIB Vaccines Aged Out No longer eligi ble based on patient's age to complete this topic HPV Vaccines Aged Out No longer eligi ble based on patient's age to complete this topic Hepatitis A Vaccines Aged Out No long er eligible based on patient's age to complete this topic Hepatitis B Vaccines Aged Out No long er eligible based on patient's age to complete this topic IPV Vaccines Aged Out No longer eligi ble based on patient's age to complete this topic Meningococcal ACWY Vaccine Aged Out N o longer eligible based on patient's age to complete this topic Meningococcal B Vaccine Aged Out No l onger eligible based on patient's age to complete this topic RSV Vaccines <20 Months Aged Out No l onger eligible based on patient's age to complete this topic Insurance [facility] MEDICARE [facility] Advance Directives For more information, please contact: [phone] * Full Code (Latest Code Status on File) Date Activated Date Inactivated Comments 01/02/2019 11:42 PM 01/06/2019 1:16 PM Care Teams Print Support Specialist Relationship Specialty Start Date End Date Dulce Maria Leal MD PCP - General Family Medicine 01/02/19
--- OUTSIDE RECORDS SUMMARY | 2024-12-19 08:10 | XMS_ITS | Data Portability ---
Author Organization [facility], [facility] Address [address] [address] Care Team Providers Care Hypoid Gear Tester Name Role Phone DOWELLPARMINDERRHONA Primary Care Provider [phone] Assessment Encounter Date Assessment Date Assessment LastModified by Organization Details LastModified Time 01/02/2019 01/02/2019 I recommend ED evaluation d/t rib fracture and small pneumothorax, pt agrees, signed AMA for EMS transport. Pt A/A, protecting airway, breathing, pulse ox, w/o difficulty. Family member with pt and driving pt to ED. I notified Dara ORNELAS at [facility]. [email or web address] Not available 01/02/2019 15:15:46 Plan of Treatment Reminders Order Date Submit Date Provider Last Modified By Organization Details Last Modified Time Details Appointments None recorded. Lab None recorded. Referral None recorded. Procedures None recorded. Surgeries None recorded. Imaging XR, ribs, unilateral 2018 019 [facility], [address] [place], [address], 9 14:40:23 Medication Orders None recorded. Patient TargetsNo targets recorded. Patient InstructionsNo instructions recorded. Reason for Referral None Reported. Results Created Date Observation Date Name Description Value Unit Range Abnormal Flag Note LastModifiedBy Organization Detail LastModifiedTime 01/03/20 19 01/02/2019 XR, ribs, unila teral PROCED URE INFORM ATION: Exam: XR Right Ribs Exam date and time: 2018 1:44 PM Age: 63 years old Clinic al histor y: Pleuro dynia; Injury or trauma ; Fall; Initia l encoun ter; Chest wall; Blunt trauma ; Injury date: ; Additi onal info: Fell down hill hit stump. Area of intres t RT side below breast TECHNI QUE: Imagin g protoc ol: XR Right ribs. Views: 2 views. COMPAR ANISHA: No releva nt prior studie s availa ble. FINDIN GS: Bones/ joints : Nondis placed fractu re of the carl latera l aspect of a right lower rib, approx imatel y the 8th or 9th. No displa octavio rib fractu re is identi fied. Synovi al chondr omatos is of the right should er noted. Pleura l space: Right pneumo thorax extend ing approx imatel y 25 mm from the chest apex. No pleura l effusi on. Soft tissue s: Normal . IMPRES ENMANUEL: Small right pneumo thorax . [address] [facility] [address] [place], [address], 01/02/2019 19:14:58 01/03/2001/02/2019 XR, ribs, unila teral THIS REPORT CONTAI NS FINDIN GS THAT MAY BE CRITIC AL TO PATIEN T CARE. The findin gs were verbal ly commun icated via teleph one confer ence with ELIU LOZANO at 1:48 PM PREPRESS MANAGER on 2018. The findin gs were acknow ledged and unders tood. [address] [facility] [address] [place], [address], 01/02/2019 19:14:58 Result Notes Documentation Provider Name and Address Organization Details Recorded Time Xr, Ribs, Unilateral : PROCEDURE INFORMATION: Exam: XR Right Ribs Exam date and time: 01/02/2019 1:44 PM Age: 63 years old Clinical history: Pleurodynia; Injury or trauma; Fall; Initial encounter; Chest wall; Blunt trauma; Injury date: 01/02/19; Additional info: Fell down hill hit stump. Area of intrest RT side below breast TECHNIQUE: Imaging protocol: XR Right ribs. Views: 2 views. COMPARISON: No relevant prior studies available. FINDINGS: Bones/joints: Nondisplaced fracture of the anterolateral aspect of a right lower rib, approximately the 8th or 9th. No displaced rib fracture is identified. Synovial chondromatosis of the right shoulder noted. Pleural space: Right pneumothorax extending approximately 25 mm from the chest apex. No pleural effusion. Soft tissues: Normal. IMPRESSION: Small right pneumothorax. Eliu Lozano APN, COMMUNITY RECREATION PROGRAMMER-C [address], [place], [address], [facility] 01/02/2019 19:14:58 Xr, Ribs, Unilateral : THIS REPORT CONTAINS FINDINGS THAT MAY BE CRITICAL TO PATIENT CARE. The findings were verbally communicated via telephone conference with ELIU LOZANO at 1:48 PM PREPRESS MANAGER on 01/02/2019. The findings were acknowledged and understood. Eliu Lozano APN, COMMUNITY RECREATION PROGRAMMER-C [address], [place], [address], [facility] 01/02/2019 19:14:58 Problems Name Problem SNOMED Code Status Onset Date Resolution Date Notes Provider Name and Address Organization Details Recorded Time Diabetes mellitus 08694339 [facility] 00770223 [facility] 13:[facility] Hypertensive disorder 85474169 [facility] 9 13:[facility]:58 Problem Notes None recorded. Procedures Surgical History Date Name Laterality Status Provider Name and Address Organization Details Recorded Time Orthopedic Surgery completed [facility] 01/02/2019 13:42:26 Imaging Results None recorded. Procedure Notes None recorded. Medical Equipment None Reported. Allergies No known drug allergies Medications Name Sig Start Date Stop Date Status Note LastModified by Organization Details LastModified Time atorvastatin 80 mg tablet active Not Available Not Available Not Available sildenafil 50 mg tablet TK 1 T PO PRN UTD active Not Available Not Available No t Available triamcinolone acetonide 0.1 % topical cream active Not Available Not Available Not Available glimepiride 4 mg tablet active Not Available Not Available No t Available hydrochloroth iazide 12.5 mg capsule TK ONE C PO QAM active Not Available Not Available No t Available ergocalcifero l (vitamin D2) 1,250 mcg (50,000 unit) capsule 01/02 completed Not Available Not Available Not Available metformin ER 500 mg tablet,extend ed release 24 hr active Not Available Not Available Not Available amlodipine 10 mg-benazepril 20 mg capsule TK 1 C PO QD active Not Available Not Available No t Available diclofenac 1 % topical gel active Not Available Not Availabl e Not Available Invokana 300 mg tablet TK 1 T PO D active Not Available Not Available No t Available Bydureon 2 mg/0.65 mL subcutaneous pen injector INJECT 0.65 ML UNDER THE SKIN WEEKLY active Not Available Not Available No t Available Accu-Chek Fastclix Lancet Drum active Not Available Not Available Not Available Flucelvax Quad (PF) 60 mcg (15 mcg x 4)/0.5 mL IM syringe ADM 0.5ML IM UTD active Not Available Not Available No t Available Vitals Date Recorded Body weight Body mass index (BMI) Body height Body temperature Heart rate Respiratory rate Oxygen saturation Oxygen saturation in Arterial blood by Pulse oximetry Pain severity - 0-10 verbal numeric rating [Score] - Reported Systolic And Diastolic Provider Name and Address Organization Details Last Updated DateTime 9 765591. 34 g 43.7 kg/m2 175.26 cm 97.3 [degF] 82 /min 18 /min 97 % 97 % 7 120/77 mm[Hg] Roseanne Montes De Oca [facility] 9 13:40:30 Social History Question Answer Notes LastModified by Organizat ion Details LastModified Time Tobacco Smoking Status Former Smoker Roseanne Montes De [facility] 01/02/2019 13:41:41 What Was The Date Of Your Most Recent Tobacco Screening? 01/02/2019 Information n ot available 01/03/2019 Sex: Unknown Functional Status None recorded. Mental Status None recorded. Family History Nothing Reported. Medical History Condition Response Other #2 N RHEUMATIC FEVER N STROKE N CHICKENPOX N POLIO N DIABETES Y PROSTATE N HEART ARRHYTHMIA N RADIATION / CHEMOTHERAPY N COPD N EYE PROBLEMS N BLEEDING DISORDER N MUMPS N CAROTID BLOCKAGE N SEIZURES N BACK / NECK PROBLEMS N BOWEL PROBLEMS N FEMALE PROBLEMS / INFECTIONS N HAVE YOU BEEN HOSPITALIZED OR SEEN IN [facility] ER IN THE PAST YEAR ? N ATHEROSCLEROSIS N THYROID DISEASE N ULCERS N sleep apnea N MEASLES N Surgery N BREAST PROBLEMS N DIALYSIS N DEPRESSION N ADHD N HIV / AIDS N OBESITY N ANEURYSM N GERD N OSTEOPOROSIS N URINARY/BLADDER/KIDNEY PROBLEMS N Other #1 N HEART ATTACK ([place])/ANGINA N ARTHRITIS N HEADACHES N USE OF BLOOD THINNERS N APPENDICITIS N SKIN PROBLEMS N EMPHYSEMA N BAD TEETH N HIGH CHOLESTEROL Y HEARTBURN / REFLUX N GASTROINTESTINAL BLEEDING N CAD N BLOOD CLOTS N ASTHMA N HEPATITIS / LIVER DISEASE N CATARACTS N PULMONARY DISEASE N GOUT N SLEEP DISORDER N PSYCHIATRIC CARE N HERPES N DEMENTIA N ALLERGIES N CHF N VASCULAR DISEASE N PACEMAKER N DIZZINESS N KIDNEY DISEASE N EAR PROBLEMS N Myocardial Infarction N LUNG DISORDER N FRACTURES N MULTIPLE SCLEROSIS N Hyperlipidemia N SCARLET FEVER N HYPERTENSION Y CARDIAC ARRHYTHMIA N CANCER: SPECIFY N ANXIETY DISORDER N ANEMIA/BLOOD DISORDER N PNEUMONIA N PULMONARY EMBOLISM N Cervicalgia N BRONCHITIS N HEART DISEASE N CORONARY ARTERY DISEASE N TUBERCULOSIS N GLAUCOMA N ABDOMINAL PAIN N Past Encounters Encounter ID Performer Location Encounter Start Date Encounter Closed Date Diagnosis/Indication Diagnosis SNOMED-CT Code Diagnosis ICD10 Code Diagnosis IMO Codes Diagnosis Note [id number] Patricia Dalton MD [facility] [address] [facility] [address] 01/02/2019 13:29:31 01/02/2019 13:53:22 Rib pain 353223175 R07.81 Right pneumothorax 30323 3001 J93.9 Fracture of rib 58997560 S22.31XA Health Concerns Section Related Observation LastModified by Organization Detai ls LastModified Time None Recorded Concern Status LastModified by Organization Details LastModified Time None Recorded Advance Directives Directive None Recorded Payers Insurance Date Sequence Insurance Name Policy Number Policy [place] Covered Member ID [place] Member ID Guarantor Name 01/02/2019 1 [place] [id number] Lul Yoder [id number] Lul Yoder Notes Date Note Type Note Provider Name a nd Address Organization Details Recorded Time 01/02/2019 text/html Pt presents with c/o right rib cage pain and SOB. States he tripped and fell down a hill this morning. Struck R side of ribcage on a stump. Painful to take in a deep breath. Area of pain is R anterior chest wall below R breast. Eliu Lozano APN, COMMUNITY RECREATION PROGRAMMER-C [address] , [place], [address], [facility] 01/02/2019 15:16:09
--- OUTSIDE RECORDS SUMMARY | 2024-12-19 08:10 | XMS_ITS | Encounter Summary ---
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
[2024-12-19 08:35] VITALS: BP 158/71; PULSE 81; RESP 18; TEMP 36.4; O2SAT 99
--- NOTE | 2024-12-19 08:40 | ED_ITS ---
HPI - Eye Problem General Chief complaint: Eye Problems Stated complaint: double vision Time Seen by Provider: 12/19/24 08:11 Source: patient and RN notes reviewed Mode of arrival: ambulatory Limitations: no limitations History of Present Illness HPI Narrative: Patient presents today complaining a vertical double vision x4 days, with some puffiness of the right upper eyelid. States double vision is only present with both eyes open and he can see normally if looking from each eye separately. He does were glasses. Vision upon arrival was Right eye: 20/50, left eye: 20/20, bilateral 20/40. Reports he had a mild headache 2 days ago which resolved with some Tylenol, but none since then. Patient denies eye pain, redness, drainage. He denies any additional symptoms to include chest pain, shortness of breath, dizziness or lightheadedness, neck pain. History of diabetes, but was able to get off of his diabetes medication a few years ago after a gastric sleeve helped him lose over 100 lb. He also has history of vertigo, but this is only exacerbated when walking on very shiny [place]. History of hypertension, high cholesterol, cholecystectomy. Denies history of stroke, thyroid disease, multiple sclerosis, aneurysm, PR. Related Data Home Medications ?Medication ?Instructions ?Recorded ?Confirmed ?Last Taken ?Type amlodipine 10 mg tablet mg 12/19/24 Unknown History atorvastatin 80 mg tablet mg 12/19/24 Unknown History losartan 100 mg tablet mg 12/19/24 Unknown History Allergies Allergy/AdvReac Type Severity Reaction Status Date / Time No Known Allergies Allergy Verified 12/19/24 08:05 [facility] Past Medical History Medical History (Updated 12/19/24 @ 08:50 by Keya Milton APRN, PADDY) History of diabetes mellitus Vertigo Hypertension High cholesterol Surgical History Surgical History (Updated 12/19/24 @ 08:50 by Keya Milton, DARYN, PADDY) H/O bariatric surgery History of cholecystectomy Social History Social History (System 04/04/19 @ 11:02 by Dorothy Alexander) Alcohol intake: current Exam Narrative: GENERAL: Well-appearing, well-nourished, and in no acute distress. HEAD: Normocephalic, atraumatic. EYES: EOMI. PERRL. No redness or drainage. Conjunctivae normal. +mild right eye droop. ENT: Mucous membranes pink and moist. tongue midline NECK: Normal AROM. Supple. No lymphadenopathy. CHEST: No respiratory distress. Clear to auscultation. HEART: Regular rate and rhythm. No murmur appreciated. Normal peripheral pulses. EXTREMITIES: Normal range of motion. No edema. SKIN: Warm, dry, no rash. Capillary refill normal. Normal skin turgor. NEURO: Mild right eye droop. Mild right mouth droop. Alert and oriented x3. Gait steady. Hand marine water tender equal and strong. PSYCH: Normal affect. No signs of depression or anxiety. Course Course Level of Care: Express Care Visit Vital Signs Vital signs: Vital Signs Temperature 97.5 F L 12/19/24 08:35 Pulse Rate 81 12/19/24 08:35 Respiratory Rate 18 12/19/24 08:35 Blood Pressure 158/71 H 12/19/24 08:35 Pulse Oximetry 99 12/19/24 08:35 Oxygen Delivery Room Air 12/19/24 08:35 Temperature 97.5 F L 12/19/24 08:35 Pulse Rate 81 12/19/24 08:35 Respiratory Rate 18 12/19/24 08:35 Blood Pressure 158/71 H 12/19/24 08:35 Pulse Oximetry 99 12/19/24 08:35 Oxygen Delivery Room Air 12/19/24 08:35 Reviewed Transfer Transfered to: [facility] Transportation: Other (Private vehicle) Transfer rationale: Higher level of care, neurology consult Accepting physician: Rick MDM - Eye Problem MDM Narrative Medical decision making narrative: Patient presents today complaining a vertical double vision x4 days, with some puffiness of the right upper eyelid. States double vision is only present with both eyes open and he can see normally if looking from each eye separately. He does were glasses. Vision upon arrival was Right eye: 20/50, left eye: 20/20, bilateral 20/40. Reports he had a mild headache 2 days ago which resolved with some Tylenol, but none since then. Patient denies eye pain, redness, drainage. Upon exam, patient has a droop of the right upper eyelid as well as the right lateral mouth. Recommend ER transfer for further evaluation of his symptoms. Vital signs stable at this time. Patient may go by private vehicle. Patient and agree with plan. Differential Diagnosis Differential diagnosis: Likely other (CVA, TIA, MS, Thyroid disease, malignancy, aneurysm) Critical Care Time Critical Care Time Critical Care Time: No Discharge Plan Discharge Clinical Impression: Vertical diplopia, Facial droop Patient Disposition: Acute Care Hospital Condition: Stable Patient Language: Qatari Prescriptions: No Action atorvastatin 80 mg tablet amlodipine 10 mg tablet losartan 100 mg tablet Follow-up/Referrals: UNKNOWN,DOCTOR [Primary Care Provider] Time of Disposition: 08:42
== END 2024-12-19 08:46 | disposition short-term general hospital (02) ==
PROVIDERS: Emergency Provider Nurse Practitioner
DX: H53.2 Diplopia (principal); R29.810 Facial weakness; I10 Essential (primary) hypertension; E78.00 Pure hypercholesterolemia, unspecified; Z98.84 Bariatric surgery status
CPT/HCPCS: 99212; G0463

== ENCOUNTER 2024-12-19 09:00 | Observation (INO) | payer MEDICARE, SELFPAY ==
[2024-12-19] VITALS (10 sets, daily range): BP systolic 135–177; BP diastolic 73–89; PULSE 56–87; RESP 15–24; TEMP 36.4–36.8; O2SAT 98–100; BMI 36.4
--- NOTE | ~2024-12-19 | MR_ITS ---
MR brain/brain stem wo/w con CLINICAL HISTORY: Double vision . COMPARISON: None. TECHNIQUE: Multiplanar multisequence imaging of the brain was obtained without and with infusion of gadolinium contrast. FINDINGS: Diffusion-weighted images demonstrate no restriction to suggest acute ischemic infarct. No pathologic signal intensity, pathologic enhancement, mass or extra-axial fluid collection is noted. Focal T2 and FLAIR bright signal abnormalities are scattered throughout the periventricular white matter. This is suggestive of chronic white matter microangiopathic changes. The ventricles are normal in size. There is no midline shift. Sagittal images demonstrate normal appearance of the corpus callosum, brainstem and pituitary gland. Flow voids are intact. The visualized mastoid air cells are clear. The paranasal sinuses are clear. The globes, orbits and retrobulbar structures are normal. IMPRESSION: No acute infarct is evident on the diffusion weighted images. No pathologic signal intensity, pathologic enhancement, mass or extra-axial collection is noted. Chronic white matter microangiopathic changes. Reviewed, dictated and finalized at location S. SPRINKL[employer] INSTALLER IMPRESSION: No acute infarct is evident on the diffusion weighted images. No pathologic signal intensity, pathologic enhancement, mass or extra-axial col lection is noted. Chronic white matter microangiopathic changes.
--- NOTE | ~2024-12-19 | XR_ITS ---
Examination: XR chest 1V Clinical History: stroke w/u Comparison: None Technique: Portable AP Findings: Heart size enlarged. Lungs clear. No acute bony abnormality. IMPRESSION: 1. No acute cardiopulmonary findings given portable technique. Reviewed, dictated and finalized at location R. [facility]
--- NOTE | ~2024-12-19 | CT_ITS ---
CT HEAD CTA NECK, CTA HEAD Clinical History: diplopia LKW >24 hours ago Comparison: None TECHNIQUE: Unenhanced axial images skull base to vertex Coronal, sagittal reformats Helical images thoracic inlet to vertex IV contrast information not listed in PACS Coronal, sagittal reformats. Multi planar MIPS CT images acquired with automatic exposure control for dose reduction DLP: 1752 mGy-cm Findings: CT HEAD Sulci, ventricles: Unremarkable. No intracerebral hemorrhage. No evidence acute territorial infarct. No mass effect, midline shift. Bony calvarium intact. Visualized paranasal sinuses: Clear. Mastoid air cells: Clear. No abnormal foci of contrast enhancement. Patent dural venous sinuses. CTA NECK NASCET Criteria utilized Aortic arch: No aneurysm or dissection. Great vessel origins: No stenosis. CCAs: No dissection. No stenosis. Cervical ICAs: Mild bulb disease but no stenosis. No dissection. Vertebral Arteries: Patent. Lung Apices: Clear. Thyroid: Unremarkable. Nodes: No enlarged nodes. Bones: No acute bony abnormality. CTA HEAD: Aneurysms: None. Intracranial ICAs: Patent, unremarkable. ACAs and their distal branches: Right A1 congenitally absent. A-Comm: Identified. Patent, unremarkable. MCAs and their distal branches: Patent, unremarkable. Basilar artery: Patent, unremarkable. furnace packer and their distal branches: Left P1 diminutive. P-Comms: Left side present. IMPRESSION: CT HEAD: 1. No acute intracranial findings. CTA NECK: 1. No ICA stenosis or other acute arterial abnormality. CTA HEAD: 1. No large vessel arterial occlusive disease or other acute findings. 2. No aneurysms. Reviewed, dictated and finalized at location R. ER MACHINE TENDER
--- OUTSIDE RECORDS SUMMARY | 2024-12-19 09:27 | XMS_ITS | Clinical Summary ---
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 Gender Identity Not on file Sexual Orientation [...] 11/21/2018, 2016 Medical Devices Implanted Type Area Pearl Peller Device Identifier Shelf Expiration Date Model / Serial / Lot Log [id number] - Cement - 1 - Cement [place] G-Hv 40g [id number] Implanted:Qty : 1 on 10/20/2010 at [facility] Cement Right: Knee [employer] INC 02/15/2012 [id number] / / [id number] Log [id number] - Cement - 1 - Cement [place] G-Hv 40g [id number] Implanted:Qty : 1 on 10/20/2010 at [facility] Cement Right: Knee [employer] INC 02/15/2012 [id number] / / [id number] Cement [place] Hv 40g [id number] - [id number] Implanted:Qty : 1 on 06/22/2016 by Sage Mack MD at [facility] Cement Left: Knee [employer] INC 02/13/2018 [id number] / / [id number] Cement [place] G-Hv 40g 712359 - [id number] Implanted:Qty : 1 on 01/12/2017 by Regis Fallon MD at [facility] Cement Left: Shoulder [employer] account liaison hospice DJO SURGICAL 06/13/2018 [id number] / / [id number] Clip Hemolok Lrg [id number] - Csc - [id number] Implanted:Qty : 1 on 09/23/2023 by Diego Issa MD at [facility] N/A: Abdomen TELEFLEX- WECK CLOSURE SYS 06/14/2027 [id number] / / [id number] Government Relations Analyst Endoclip Iii 5mm W/Cliplogic [id number] - [id number] Implanted:Qty : 1 on 09/23/2023 by Diego Issa MD at [facility] N/A: Bile Duct MEDTRONIC - COVIDIEN 06/13/2026 [id number] / / [id number] Log [id number] - Biomet Vanguard Complete Knee System - 1 - Comp Fem Vngrd Cr Intrlk Rt 70mm [id number] Implanted:Qty : 1 on 10/20/2010 at [facility] Knee Right: Knee [employer] INC 08/14/2020 [id number] / / [id number] Log [id number] - Biomet Vanguard Complete Knee System - 1 - Plate Tib Cocr Finned 79mm [id number] Implanted:Qty : 1 on 10/20/2010 at [facility] Knee Right: Knee [employer] 04/14/2020 [id number] / / [id number] Comp Fem Vngrd Cr Intrlk Lt 70mm 444150 - [id number] Implanted:Qty : 1 on 06/22/2016 by Sage Mack MD at [facility] Knee Left: Knee [employer] INC 05/04/2026 [id number] / / [id number] Comp Tib Cocr Finned 79mm [id number] - [id number] Implanted:Qty : 1 on 06/22/2016 by Sage Mack MD at [facility] Knee Left: Knee [employer] INC 03/05/2026 [id number] / / [id number] Brng Tib Vng Cr 10x79/83 [id number] - [id number] Implanted:Qty : 1 on 06/22/2016 by Sage Mack MD at [facility] Knee Left: Knee [employer] INC 05/06/2021 [id number] / / [id number] Mesh Ventralex 1.7in Circ [id number] - [id number] Implanted:Qty : 1 on 12/17/2013 by Aaliyah Tsang MD at [facility] Mesh N/A: Abdomen CR BARD- DAVOL INC 09/14/2015 [id number] / / [id number] Pin Steinmann Thrd 3.3tmr9cm [id number] - [id number] Implanted:Qty : 1 on 01/12/2017 by Regis Fallon MD at [facility] Pin Left: Shoulder JENNI BIOMET [id number] / / Glenoid Base Hybrid Cmprhnsv 129837 - [id number] Implanted:Qty : 1 on 01/12/2017 by Regis Fallon MD at [facility] Shoulder Left: Shoulder JENNI BIOMET 10/22/2021 [id number] / / [id number] Post Glnd Mod Hybrid Regenerex Pt-348937 - [id number] Implanted:Qty : 1 on 01/12/2017 by Regis Fallon MD at [facility] Shoulder Left: Shoulder JENNI BIOMET 10/22/2026 [id number] / / [id number] Head Hum Versa-Dial [id number] - [id number] Implanted:Qty : 1 on 01/12/2017 by Regis Fallon MD at [facility] Shoulder Left: Shoulder JENNI BIOMET [id number] 09/30/2026 [id number] / / [id number] Stem Hum Comp Mini 13mm 601104 - [id number] Implanted:Qty : 1 on 01/12/2017 by Regis Fallon MD at [facility] Shoulder Left: Shoulder JENNI BIOMET [id number] 12/17/2026 [id number] / / [id number] Description:All Biomet recon shoulder components are processed on requisition,9035869. Adaptor Hum Versa-Dial Tpr 829858 - [id number] Implanted:Qty : 1 on 01/12/2017 by Regis Fallon MD at [facility] Shoulder Left: Shoulder JENNI BIOMET [id number] 11/10/2026 [id number] / / [id number] E-Poly Implanted:Qty : 1 on 10/20/2010 at [facility] Right: Knee [employer] INC 02/14/2015 [id number] / / [id number] Description:Epoly tibial felix ring is not part of total knee cap pricing,will be charged separately. Procedures Procedure Name Priority Date/Time Associated Diagnosis Comments HEMOGLOBIN A1C Routine 09/21/2023 9:03 AM CDT from Last 3 Months or Most Recently Relevant to Health Maintenance Results * (ABNORMAL) HEMOGLOBIN A1C (09/21/2023 9:03 AM CDT) HEMOGLOBIN A1C 11.3(H) <=5.6 % 09/21/2023 10:51 AM CDT [facility] EST. AVG GLUCOSE, A1C 278 mg/dL 09/21/2023 10:51 AM CDT [facility] Blood Venipuncture / Unknown 09/21/2023 9:03 AM CDT 09/21/2023 9:30 AM CDT Narrative [facility] - 09/21/2023 10:51 AM CDT HGB A1C INTERPRETATION NORMAL: <5.7% PRE-DIABETES: 5.7 - 6.4% DIABETES: 6.5% OR GREATER Denise MARLEY CHEMISTRY ORDERABLES Final Result [facility] - [facility]# [id number] [address] [address] from Last 3 Months or Most Recently Relevant to Health Maintenance Insurance AETNA PPO MCR RX AETNA Medicare Part D RX [employer] (INTERNAL) [facility] Internal Plans Advance Directives For more information, please contact: [phone] * Full Code (Latest Code Status on [...] 2:56 PM 01/13/2017 4:46 PM Care Teams Passenger Rate Clerk Relationship Specialty Start Date End Date Asif Leal MD PCP - General Student in an Organized Health Care Education/Training Program 01/02/18
--- OUTSIDE RECORDS SUMMARY | 2024-12-19 09:27 | XMS_ITS | Encounter Summary ---
Author Organization [facility] [place] [facility] Address 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 [address] [email or web address] Noninvasive V[facility] Lab Peripheral Venous Study Patient: Lul Yoder Study ID: BLOOD FLOW STUDY Gender: Sania : 1955 Age: 52 years Race: 1 Room: Bed: Height: Study Date: October 01, 2008 Patient status: Outpatient Weight: Access. #: [id number] POC: Supervisor Taping: Nayan Ordering: Consuelo Attending MD: Consuelo Michel [...] 18:21:10 Procedure Note Provider, Historical - 10/01/2008 [place] [address] [place] [address] [email or web address] [email or web address] Noninvasive Vascular Lab Peripheral Venous Study Patient: Lul Yoder Study ID: BLOOD FLOW STUDY Gender: M : 1955 Age: 52 years Race: 1 Room: Bed: Height: Study Date: October 01, 2008 Patient status: Outpatient Weight: Access. #: [id number] POC: Supervisor Taping: Nayan Ordering: Consuelo Ji MD: Consuelo Michel [...] documented as of this encounter Care Teams Hand Collator Relationship Specialty Start Date End Date Asif Leal MD PCP - General Student in an Organized Health Care Education/Training Program 01/02/18 documented as of this encounter
--- OUTSIDE RECORDS SUMMARY | 2024-12-19 09:27 | XMS_ITS | Encounter Summary ---
Author Organization [facility] Address 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
--- OUTSIDE RECORDS SUMMARY | 2024-12-19 09:27 | XMS_ITS | Clinical Summary ---
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 Gender Identity Not on file Sexual Orientation Not on file Last Filed Vital Signs Vital Sign Reading Time Taken Comments Blood Pressure - - Pulse 76 11/15/2023 9:04 AM CDT Temperature - - Respiratory Rate 22 11/15/2023 9:04 AM CDT Oxygen Saturation - - Inhaled Oxygen Concentration - - Weight 105.7 kg (233 lb) 03/13/2024 11:55 AM SHEET METAL ENGINEER Height 177.8 cm (5' 10) 03/13/2024 11:55 AM SHEET METAL ENGINEER Body Mass Index 33.43 03/13/2024 11:55 AM SHEET METAL ENGINEER Plan of Treatment Health Maintenance Due Date [...] AA) Screen Completed 10/30/2023, 10/03/2023, 09/20/2023 Insurance [employer] MEDICARE PPO [employer] MEDICARE PPO Care Teams Bobcat Operator Relationship Specialty Start Date End Date Moreno Reyes MD [address] [place] [address] PCP - General Family Medicine 12/21/23
--- OUTSIDE RECORDS SUMMARY | 2024-12-19 09:27 | XMS_ITS | Encounter Summary ---
Author Organization [facility] Address [address] [place] [address] Care Team Providers Care Armature Coil Winder Name Role Phone Asif Leal MD Primary Care Provider [phone] Reason for Visit * Reason Onset Date Comments Admitted with lumbar osteo- developed MARCIAL 09/25/2023 Spoke w/ Karissa @ Dr. Justice monte Encounter Details Date Type Department Care Team (Late st Contact Info) Description 09/25/2023 Telephone [facility] Admitting [address] [place] [address] [place] [address] [place] [address] Admitted with lumbar osteo- developed MARCIAL (Spoke philip/ Karissa @ Dr. 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
--- OUTSIDE RECORDS SUMMARY | 2024-12-19 09:27 | XMS_ITS | Encounter Summary ---
Author Organization [facility] Address [address] [place] [address] Care Team Providers Care Manager Group Name Role Phone Asif Leal MD Primary Care Provider [phone] Reason for Visit * Reason Onset Date Comments : 67 M, poorly controlled DM , please review 09/22/2023 SPOKE WITH / DR. 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
--- OUTSIDE RECORDS SUMMARY | 2024-12-19 09:28 | XMS_ITS | Clinical Summary ---
Author Organization [facility] Address [address] [place] [address] Care Team Providers Care Mall Manager Name Role Phone Moreno Reyes MD Primary Care Provider [phone] Allergies No known active allergies Medications losartan [...] Type Department Care Team Description 10/12/2024 Refill [facility] [address] [place] [address] [place] [address] Moreno Reyes MD Medication Refill 09/20/2024 10:30 AM CDT Office Visit [facility] [address] [place] [address] Taz Siu PA-C Status post reverse total shoulder replacement, right (Primary Dx); Primary osteoarthritis of right shoulder; 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 No 10/27/2023 Alcohol Use Answer [...] total shoulder replacement, right Taz Siu PA-C [facility] IMG DIAG ORDERABLES Final Result * (ABNORMAL) HEMOGLOBIN A1C (06/12/2024 11:58 AM CDT) Hemoglobin A1C 10.1(H) 4.0 - 6.0 % [facility] Estimated Average Glucose 243(H) 68 - 114 MG/DL [facility] 06/12/2024 11:5 8 AM CDT 06/12/2024 4:59 PM CDT Corey He MD CHEMISTRY ORDERABLES Final Resul t [facility] [address] [place] [address], [facility] [phone] * US ABDOMEN LIMITED (09/20/2023 2:40 PM CDT) Anatomical Region Laterality Modality Abdomen Other 09/20/2023 2:40 PM CDT Narrative 09/20/2023 4:21 [place] [address] [place] [address] IMAGING REPORT Name: NA YODER Room #: : 1955 Bed #: Age: 67 Years Patient Type: Outpatient Order Date/Time: [id number] Sex: M Admit Date/Time: Order#: Accession#: Exam Description: Admitting Diagnosis: [id number] US-ABDOMEN LTD Dictated By: Lazaro Trejo Ordering [...] 67 Years Patient Type: Outpatient Order Date/Time: [id number] Sex: M The right kidney measures 11.3 [...] Procedure Note Lazaro Trejo MD - 10/02/2023 [place] [address] [place], [place] [id number] IMAGING REPORT Name: NA YODER Room #: : 1955 Bed #: Age: 67 Years Patient Type: Outpatient Order Date/Time: [id number] Sex: M Admit Date/Time: Order#: Accession#: Exam Description: Admitting Diagnosis: [id number] US-ABDOMEN LTD Dictated By: Lazaro Trejo Ordering Physician: TRAY ARRIETA Attending Physician: TRAY ARRIETA Primary Care Physician: TRAY ARRIETA EXAMINATION: Focused sonographic evaluation of the abdomen CLINICAL HISTORY: 67 years Male,Abd pain without trauma/injury COMPARISON: CT of the abdomen and pelvis performed on the same day TECHNIQUE: Oyder scale, color Doppler and spectral Doppler sonographic [...] 67 Years Patient Type: Outpatient Order Date/Time: [id number] Sex: M The right kidney measures 11.3 [...] by: Lazaro Trejo DO 09/20/2023 04:18 PM InktankP PAGE 2 OF 2 us Tray Arrieta DO [facility] ORDERABLES Devi l Result from Last 3 Months or Most Recently Relevant to Health Maintenance Insurance [employer] MEDICARE [employer] MEDICARE Care Teams Mall Manager Relationship Specialty Start Date End Date Moreno Reyes MD [address] [place] [address] PCP - General Family Medicine 10/18/23
--- OUTSIDE RECORDS SUMMARY | 2024-12-19 09:28 | XMS_ITS | Encounter Summary ---
Author Organization [facility] Address [address] [place] [address] Care Team Providers Care Cabinetmaker Helper Name Role Phone Asif Leal MD Primary Care Provider [phone] Reason for Visit * Reason Onset Date Comments Lumbar Radiculopathy 10/31/[address] SNELL ON CELL Encounter Details Date Type Department Care Team (Late st Contact Info) Description 10/31/2023 Telephone [facility] Admitting [address] [place] [address] [place] [address] [facility] [address] [place] [address] Lumbar Radiculopathy (SPOKE W DR. 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
--- OUTSIDE RECORDS SUMMARY | 2024-12-19 09:28 | XMS_ITS | Encounter Summary ---
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
--- OUTSIDE RECORDS SUMMARY | 2024-12-19 09:28 | XMS_ITS | Clinical Summary ---
Author Organization [facility] Address [address] [place] [address] Care Team Providers Care Pressure Sealer And Tester Name Role Phone Dulce Maria Leal MD [...] on file Legal Sex Male 7:58 PM MODEL ARTISTS' Gender Identity Not on file Sexual Orientation Not on file Last Filed Vital Signs Vital Sign Reading Time Taken Comments Blood Pressure 128/68 01/06/2019 9:01 AM MODEL ARTISTS' Pulse 76 01/06/2019 7:33 AM MODEL ARTISTS' Temperature 36.6 C (97.9 F) 01/06/2019 7:33 AM MODEL ARTISTS' Respiratory Rate 22 01/06/2019 7:33 AM MODEL ARTISTS' Oxygen Saturation 92% 01/06/2019 7:51 AM MODEL ARTISTS' Inhaled Oxygen Concentration - - Weight 134 kg (295 lb 6.7 oz) 01/06/2019 6:07 AM MODEL ARTISTS' Height 175.3 cm (5' 9) 01/02/2019 11:35 PM MODEL ARTISTS' Body Mass Index 43.63 01/02/2019 11:35 PM MODEL ARTISTS' Plan of Treatment Health Maintenance Due Date [...] patient's age to complete this topic Insurance [facility] MEDICARE [facility] O Advance Directives For more information, please contact: [phone] * Full Code (Latest Code Status on File) Date Activated Date Inactivated Comments 01/02/2019 11:42 PM 01/06/2019 1:16 PM Care Teams Pressure Sealer And Tester Relationship Specialty Start Date End Date Dulce Maria Leal MD PCP - General Family Medicine 01/02/19
--- OUTSIDE RECORDS SUMMARY | 2024-12-19 09:28 | XMS_ITS | Clinical Summary ---
Author Organization [facility] Address [address] [place] [address] Care Team Providers Care Bill Peddler Name Role Phone Macey Alvarez DO Primary Care Provider [phone] Social History Tobacco Use Types Packs/Day Years Used Date Smoking Tobacco: Never Assessed Sex and Gender Information Value Date Recorded Sex Assigned at Male 12/17/2024 8:33 AM MEDICAL DEVICE SALES Legal Sex Male 1:05 PM CDT Gender Identity Not on file Sexual Orientation Not on file Plan of Treatment Upcoming Encounters Date Type Department Care Team (Late st Contact Info) Description 01/03/2025 7:40 AM MEDICAL DEVICE SALES Office Visit [facility] Family & Internal Medicine [address] [address] Macey Alvarez DO [address] [place] [address] Health Maintenance Due Date Last Done [...] patient's age to complete this topic Insurance [place] MEDICARE Care Teams Bill Peddler Relationship Specialty Start Date End Date Macey Alvarez DO [address] [place] [address] PCP - General FAMILY PRACTICE 12/17/24
--- OUTSIDE RECORDS SUMMARY | 2024-12-19 09:28 | XMS_ITS | Encounter Summary ---
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
--- OUTSIDE RECORDS SUMMARY | 2024-12-19 09:28 | XMS_ITS | Encounter Summary ---
Author Organization [facility] Address [address] [place] [address] Care Team Providers Care Navy Fighter Pilot Name Role Phone Dulce Maria Leal MD Primary Care Provider Un available Encounter Details Date Type Department Care Team (Late st Contact Info) Description 05/19/2022 Documentation [facility] [address] [place] [phone] Moreno Reyes MD [address] [place] [address], [place] [address] Social History Tobacco Use Types Packs/Day Years Used Date Smoking Tobacco: Former Cigarettes 0 03/04/2005 - 03/05/2015 Smokeless Tobacco: Never Comments:1 cigar a week Alcohol Use Standard Drinks/Week Comments Not Asked 1 (1 standard drink = 0.6 oz pur e alcohol) Sex and Gender Information Value Date Recorded Sex Assigned at Not on file Legal 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
--- NOTE | 2024-12-19 10:00 | ECG_ITS ---
Test Date: 2024-12-19 10:49:30 Measurements Intervals [place] Rate: 59 P: 11 NM: 149 QRS: -7 QRSD: 106 T: 34 QT: 413 QTc: 410 Interpretive Statements SINUS BRADYCARDIA POOR R-WAVE PROGRESSION ABNORMAL ECG No previous ECG available for comparison Electronically Signed On 12-19-2024 14:42:44 DIRECTOR [employer] by Mina Fong M.D.
[2024-12-19 10:46] LABS: Hematocrit 42.9 % (42.0-52.0); Hemoglobin 13.0 g/dL (14.0-18.0); Immature Granulocyte Percent A 0.5 % (0-0.5); Lymphocytes Absolute Auto 1.11 K/mm3 (0.9-3.2); Mean Corpuscular HGB Conc 30.3 g/dl (32-36); Mean Corpuscular Hemoglobin 23.3 pg (26-34); Mean Corpuscular Volume 76.9 fl (80-100); Nucleated Red Blood Cells Absolute Auto 0.000 K/mm3 (0.0-0.012); Nucleated Red Blood Cells Perc 0.0 % (0.0-0.2); Platelet Count Result 266 k/mm3 (150-375); Red Blood Count 5.58 M/mm3 (4.6-6.20); White Blood Count 8.7 K/mm3 (4.5-10.0)
[2024-12-19 10:55] LABS: INR 0.9; Prothrombin Time 12.6 Seconds (11.1-14.7)
[2024-12-19 10:56] LABS: Partial Thromboplastin Time 27.0 Seconds (22.3-36.8)
[2024-12-19 10:57] LABS: Alanine Aminotransferase 17 U/L (6-50); Albumin Level 4.5 g/dL (3.5-5.1); Alkaline Phosphatase 187 U/L (38-126); Anion Gap 7 mmol/L (4-12); Aspartate Amino Transferase 29 U/L (17-59); Bilirubin,Total 1.7 mg/dL (0.2-1.3); Blood Urea Nitrogen 16 mg/dL (9-20); Calcium 9.3 mg/dL (8.4-10.2); Carbon Dioxide 25 mmol/L (22-30); Chloride 103 mmol/L (98-107); Estimated CRCL calculation 75 ml/min; Estimated Glomerular Filt Rate > 60; Glucose 333 mg/dL (65-110); Potassium 4.2 mmol/L (3.4-5.0); Sodium 135 mmol/L (137-145); Total Protein 8.2 g/dL (6.3-8.2)
[2024-12-19 11:08] LABS: Troponin I < 0.012 ng/mL (0.000-0.034)
--- NOTE | 2024-12-19 13:12 | ED_ITS ---
HPI - Eye Problem General Chief complaint: Eye Problems <BISHNU Mack Last Filed: 12/19/24 16:13> Stated complaint: eye issues <BISHNU Mack Last Filed: 12/19/24 16:13> Time Seen by Provider: 12/19/24 10:31 <BISHNU Mack Last Filed: 12/19/24 16:13> Source: patient <BISHNU Mack Last Filed: 12/19/24 16:13> Mode of arrival: ambulatory <BISHNU Mack Last Filed: 12/19/24 16:13> Limitations: no limitations <BISHNU Mack Last Filed: 12/19/24 16:13> History of Present Illness HPI Narrative: This is a 69 year old male that presents to the ER for visual changes. Ongoing over the last 4 days. Reports he has had double vision that corrects when closing one eye. No other focal numbness or weakness. <CHRISTOPHER Mack - Last Filed: 12/19/24 16:13> Related Data Home medications: Home Medications ?Medication ?Instructions ?Recorded ?Confirmed ?Last Taken ?Type amlodipine 10 mg tablet 10 mg PO DAILY 12/19/2407/0812/19/24 History atorvastatin 80 mg tablet 80 mg PO HS 12/19/24 5 12/18/24 History losartan 100 mg tablet 100 mg PO DAILY 12/19/2407/0812/19/24 History magnesium glycinate 100 mg (as 100 mg PO HS 12/19/24 1 02/19/24 12/18/24 History glycinate) tablet (Mag Glycinate) <BISHNU Mack Last Filed: 12/19/24 16:13> Allergies/adverse reactions: Allergies Allergy/AdvReac Type Severity Reaction Status Date / Time No Known Allergies Allergy Verified 12/19/24 16:08 <BISHNU Mack Last Filed: 12/19/24 16:13> Review of Systems 2 Review of Systems: All systems reviewed & are unremarkable except as noted in HPI and below <Noemí Francis PA-C - Last Filed: 12/19/24 16:13> [facility] Past Medical History Medical History: Medical History History of osteomyelitis Back History of diabetes mellitus Vertigo Hypertension High cholesterol <Noemí Francis PA-C - Last Filed: 12/19/24 16:13> Surgical History Surgical History: Surgical History History of back surgery History of right shoulder replacement History of cholecystectomy H/O bariatric surgery <Noemí Francis PA-C - Last Filed: 12/19/24 16:13> Social History Social History: Social History Smoking status: Light tobacco smoker Tobacco type: cigars Additional smoking assessment comments: one cigar once to twice a month. Alcohol intake: current Substance use: never Lack of Transportation: No Lack of Food: Never True Current Housing: I Have Housing Concerned About Future Housing: No Difficulty Paying Gas/Electric Bills: No Difficulty Paying for Meds: No Currently Unemployed: No Education: Decline to Answer Difficulty w/ Childcare or Family Care: No Spiritual care concerns: No <Noemí Francis PA-C - Last Filed: 12/19/24 16:13> Exam 2 Narrative: GENERAL: Well-appearing, well-nourished, and in no acute distress. HEAD: Normocephalic, atraumatic. EYES: PERRLA and EOMI. ENT: Nares clear, no rhinorrhea or epistaxis. Mucous membranes moist. Oropharynx without tonsillar hypertrophy exudate or other lesions. Bilateral TMs pearly alexandra non-bulging NECK: Supple. No adenopathy or masses. CHEST: Clear to auscultation. No respiratory distress. No wheezes rales or rhonchi HEART: Regular rate and rhythm. No murmur heard. Normal peripheral pulses. ABDOMEN: Soft, nontender, nondistended, normal active bowel sounds. EXTREMITIES: Normal range of motion. No edema. SKIN: Warm, dry, no rash. NEURO: No focal deficits. Alert and oriented x3. PSYCH: Normal mood and affect <Noemí Francis PA-C - Last Filed: 12/19/24 16:13> [employer]/PA Physician Supervision Notified by provider report that this patient would be presenting. Reported history of diplopia starting several days ago, had a headache at that time. DIFFERENTIAL DIAGNOSIS Diplopia Monocular (1 eye only, continues when other eye covered) = Astigmatism, cataracts, lens dislocation Binocular (misalignment stops if other eye covered) = Entrapment, CN palsy, intracranial mass effect, thyroid disease, microvascular disease I was available for consultation while this patient was in the ED but did not personally evaluate them and was not directly invovled in their care although when they did arrive I placed stroke work up orders and notified the JENSEN of this. <Rosa Maria Cabrera MD - Last Filed: 12/19/24 19:37> Vital Signs Vital signs: Vital Signs Temperature 98.2 F 12/19/24 09:01 Pulse Rate 87 12/19/24 09:01 Respiratory Rate 16 12/19/24 09:01 Blood Pressure 152/74 H 12/19/24 09:01 Pulse Oximetry 100 12/19/24 09:01 Temperature 98.2 F 12/19/24 09:01 Pulse Rate 66 12/19/24 16:05 Respiratory Rate 16 12/19/24 14:01 Blood Pressure 177/85 H 12/19/24 14:01 Pulse Oximetry 100 12/19/24 14:01 Oxygen Delivery Room Air 12/19/24 18:18 <Noemí Francis PA-C - Last Filed: 12/19/24 16:13> Vital Signs Temperature 98.2 F 12/19/24 09:01 Pulse Rate 87 12/19/24 09:01 Respiratory Rate 16 12/19/24 09:01 Blood Pressure 152/74 H 12/19/24 09:01 Pulse Oximetry 100 12/19/24 09:01 Temperature 98.2 F 12/19/24 09:01 Pulse Rate 66 12/19/24 16:05 Respiratory Rate 16 12/19/24 14:01 Blood Pressure 177/85 H 12/19/24 14:01 Pulse Oximetry 100 12/19/24 14:01 Oxygen Delivery Room Air 12/19/24 18:18 <Rosa Maria Cabrera MD - Last Filed: 12/19/24 19:37> MDM - Eye Problem MDM Narrative Medical decision making narrative: Patient presents to the ER for diplopia. Ongoing over the last 4 days. Patient is otherwise neurologically intact. His vitals are stable. CBC and metabolic panel without concerning findings. Urine without evidence of infection. Drug screen negative. Chest x-ray without acute cardiopulmonary abnormality. CTA brain carotid without acute findings. Spoke with neurology who will consult. Spoke with hospitalist about patient and workup who accepts admission <Noemí Francis PA-C - Last Filed: 12/19/24 16:13> Differential Diagnosis Differential diagnosis: Likely other (CVA, third CN palsy) <Noemí Francis PA-C - Last Filed: 12/19/24 16:13> Lab Data Attestation: I reviewed the patient's lab results. <Noemí Francis PA-C - Last Filed: 12/19/24 16:13> Result diagrams: 12/19/24 10:25 12/19/24 10:25 <Noemí Francis PA-C - Last Filed: 12/19/24 16:13> Labs: Lab Results 12/19/24 12/19/24 12/19/24 Range/Units 10:25 10:59 11:14 WBC 8.7 (4.5-10.0) K/mm3 RBC 5.58 (4.6-6.20) M/mm3 Hgb 13.0 L (14.0-18.0) g/dL Hct 42.9 (42.0-52.0) % MCV 76.9 L (80-100) fl MCH 23.3 L (26-34) pg MCHC 30.3 L (32-36) g/dl RDW 16.7 H (11.5-14.5) % Plt Count 266 (150-375) k/mm3 MPV 9.3 (7.4-10.4) fl Immature Gran % (Auto) 0.5 (0-0.5) % Neut % (Auto) 74.4 H (45.5-73.1) % Lymph % (Auto) 12.8 L (18.3-44.2) % [place] % (Auto) 7.3 (2.6-8.5) % Eos % (Auto) 4.0 (0-4.4) % Baso % (Auto) 1.0 (0.2-1.2) % Lymph # (Auto) 1.11 (0.9-3.2) K/mm3 [place] # (Auto) 0.6 (0.1-0.6) K/mm3 Eos # (Auto) 0.4 H (0-0.3) K/mm3 Baso # (Auto) 0.1 (0.0-0.1) K/mm3 Abs Immat Gran (auto) 0.04 H (0.00-0.031) K/mm3 Absolute Neuts (auto) 6.4 (1.3-6.7) K/mm3 Absolute Nucleated RBC 0.000 (0.0-0.012) K/mm3 Nucleated RBC % 0.0 (0.0-0.2) % PT 12.6 (11.1-14.7) Seconds INR 0.9 APTT 27.0 (22.3-36.8) Seconds Sodium 135 L (137-145) mmol/L Potassium 4.2 (3.4-5.0) mmol/L Chloride 103 (98-107) mmol/L Carbon Dioxide 25 (22-30) mmol/L Anion Gap 7 (4-12) mmol/L BUN 16 (9-20) mg/dL Creatinine 1.00 (0.7-1.3) mg/dL Estim Creat Clear Calc 75 ml/min Estimated GFR > 60 (59 - ) Glucose 333 H (65-110) mg/dL POC Capillary Glucose 304 H (65-105) mg/dl Calcium 9.3 (8.4-10.2) mg/dL Total Bilirubin 1.7 H (0.2-1.3) mg/dL AST 29 (17-59) U/L ALT 17 (6-50) U/L Alkaline Phosphatase 187 H (38-126) U/L Troponin I < 0.012 (0.000-0.034) ng/mL Total Protein 8.2 (6.3-8.2) g/dL Albumin 4.5 (3.5-5.1) g/dL Urine Color Yellow (Yellow) Urine Appearance Clear (Clear) Urine pH 5.0 (5.0-9.0) Ur Specific [place] 1.040 H (1.001-1.035) Urine Protein 3+ H (Negative) mg/dL Urine Glucose (UA) 3+ H (Negative) mg/dL Urine Ketones Negative (Negative) mg/dL Ur Blood (Man) Negative (Negative) Urine Nitrate Negative (Negative) Urine Bilirubin Negative (Negative) Urine Urobilinogen 0.2 (<2.0) mg/dL Leukocyte Esterase Rfl Negative (Negative) MAYR/UL Urine RBC 0-2 (0-2) /hpf Urine WBC 0-5 (0-3) /hpf Ur Squamous Epith Cells None seen (Few) /hpf Urine Bacteria None seen /hpf Urine Casts Not present Hyaline Casts 3-4 H (None) /lpf Urine Opiates Screen Negative (Negative) Urine Methadone Screen Negative (Negative) Ur Barbiturates Screen Negative (Negative) Ur Phencyclidine Scrn Negative (Negative) Ur Amphetamine Screen Negative (Negative) U Benzodiazepines Scrn Negative (Negative) Urine Cocaine Screen Negative (Negative) U Cannabinoids Screen Negative (Negative) <Noemí Francis PA-C - Last Filed: 12/19/24 16:13> Lab Results 12/19/24 12/19/24 12/19/24 Range/Units 10:25 10:59 11:14 WBC 8.7 (4.5-10.0) K/mm3 RBC 5.58 (4.6-6.20) M/mm3 Hgb 13.0 L (14.0-18.0) g/dL Hct 42.9 (42.0-52.0) % MCV 76.9 L (80-100) fl MCH 23.3 L (26-34) pg MCHC 30.3 L (32-36) g/dl RDW 16.7 H (11.5-14.5) % Plt Count 266 (150-375) k/mm3 MPV 9.3 (7.4-10.4) fl Immature Gran % (Auto) 0.5 (0-0.5) % Neut % (Auto) 74.4 H (45.5-73.1) % Lymph % (Auto) 12.8 L (18.3-44.2) % [place] % (Auto) 7.3 (2.6-8.5) % Eos % (Auto) 4.0 (0-4.4) % Baso % (Auto) 1.0 (0.2-1.2) % Lymph # (Auto) 1.11 (0.9-3.2) K/mm3 [place] # (Auto) 0.6 (0.1-0.6) K/mm3 Eos # (Auto) 0.4 H (0-0.3) K/mm3 Baso # (Auto) 0.1 (0.0-0.1) K/mm3 Abs Immat Gran (auto) 0.04 H (0.00-0.031) K/mm3 Absolute Neuts (auto) 6.4 (1.3-6.7) K/mm3 Absolute Nucleated RBC 0.000 (0.0-0.012) K/mm3 Nucleated RBC % 0.0 (0.0-0.2) % PT 12.6 (11.1-14.7) Seconds INR 0.9 APTT 27.0 (22.3-36.8) Seconds Sodium 135 L (137-145) mmol/L Potassium 4.2 (3.4-5.0) mmol/L Chloride 103 (98-107) mmol/L Carbon Dioxide 25 (22-30) mmol/L Anion Gap 7 (4-12) mmol/L BUN 16 (9-20) mg/dL Creatinine 1.00 (0.7-1.3) mg/dL Estim Creat Clear Calc 75 ml/min Estimated GFR > 60 (59 - ) Glucose 333 H (65-110) mg/dL POC Capillary Glucose 304 H (65-105) mg/dl Calcium 9.3 (8.4-10.2) mg/dL Total Bilirubin 1.7 H (0.2-1.3) mg/dL AST 29 (17-59) U/L ALT 17 (6-50) U/L Alkaline Phosphatase 187 H (38-126) U/L Troponin I < 0.012 (0.000-0.034) ng/mL Total Protein 8.2 (6.3-8.2) g/dL Albumin 4.5 (3.5-5.1) g/dL Urine Color Yellow (Yellow) Urine Appearance Clear (Clear) Urine pH 5.0 (5.0-9.0) Ur Specific [place] 1.040 H (1.001-1.035) Urine Protein 3+ H (Negative) mg/dL Urine Glucose (UA) 3+ H (Negative) mg/dL Urine Ketones Negative (Negative) mg/dL Ur Blood (Man) Negative (Negative) Urine Nitrate Negative (Negative) Urine Bilirubin Negative (Negative) Urine Urobilinogen 0.2 (<2.0) mg/dL Leukocyte Esterase Rfl Negative (Negative) MARY/UL Urine RBC 0-2 (0-2) /hpf Urine WBC 0-5 (0-3) /hpf Ur Squamous Epith Cells None seen (Few) /hpf Urine Bacteria None seen /hpf Urine Casts Not present Hyaline Casts 3-4 H (None) /lpf Urine Opiates Screen Negative (Negative) Urine Methadone Screen Negative (Negative) Ur Barbiturates Screen Negative (Negative) Ur Phencyclidine Scrn Negative (Negative) Ur Amphetamine Screen Negative (Negative) U Benzodiazepines Scrn Negative (Negative) Urine Cocaine Screen Negative (Negative) U Cannabinoids Screen Negative (Negative) <Rosa Maria Cabrera MD - Last Filed: 12/19/24 19:37> Imaging Data Radiologist's impression: ITS Impressions Chest X-Ray 12/19/24 11:30 IMPRESSION: 1. No acute cardiopulmonary findings given portable technique. Head/Neck CTA 12/19/24 11:33 IMPRESSION: CT HEAD: 1. No acute intracranial findings. CTA NECK: 1. No ICA stenosis or other acute arterial abnormality. CTA HEAD: 1. No large vessel arterial occlusive disease or other acute findings. 2. No aneurysms. <Noemí Francis PA-C - Last Filed: 12/19/24 16:13> Critical Care Time Critical Care Time Critical Care Time: No <BISHNU Mack Last Filed: 12/19/24 16:13> Discharge Plan Discharge Clinical Impression: Diplopia <BISHNU Mack Last Filed: 12/19/24 16:13> Patient Disposition: Still a Patient <BISHNU Mack Last Filed: 12/19/24 16:13> Condition: Stable <BISHNU Mack Last Filed: 12/19/24 16:13>
[2024-12-19 13:18] LABS: Cannabinoid Screen Urine Negative (Negative)
--- NOTE | 2024-12-19 14:06 | PM.IMHP ---
H&P: HPI History of Present Illness Date/Time: 12/19/24 14:06 Chief Complaint: Double Vision Narrative: 69 y/o M with PMH of diabetes, vertigo, HTN, and HLD presents here with double vision. The patient presents here from a local urgent care on 12/19 for further evaluation of double vision. He reports onset on Tuesday, 12/15, around 11:30 a.m. Last known well around 11:20 a.m.. He reports he was working in the garden prepping for a get together at his house when he stumbled and almost bowel. He was able to correct in cells and did not sustain any injury. He finished in the yd and went inside when he noticed when looking at the TV that he had double vision. He describes the double vision as if to images were stacked on top of each other. Double vision resolves with closing of one eye but reoccurs when he has both eyes open. Initially he and his 's thought his symptoms were due to allergies as they said his right eyelid was slightly swollen. They tried ophthalmic antihistamines for 2 days without relief and cold compresses without relief. Since onset of double vision he reports he has noticed some worsening balance issues primarily when he is moving from a seated position to a standing position as well as a right eyelid droop. At baseline he does have some balance disturbances due to previous back surgeries. He denies accompanying focal numbness, focal weakness, dysarthria, word-finding difficulty, or trouble swallowing. He denies any previous history of CVA. No significant ophthalmic history. Initial VS at presentation: 98.2? F, HR 87, R 16, 152/74, and 100% on RA. ED workup showed: No leukocytosis, hemoglobin 13.0, normal coags, sodium 135, glucose 633, initial troponin negative, UDS unremarkable. CXR showed no acute cardiopulmonary findings. Head/neck CTA showed no large vessel arterial occlusive disease or other acute findings, no aneurysms, no ICA stenosis or other acute articular abnormality, no acute intracranial findings. Review of Systems Review of Systems: All systems reviewed & are unremarkable except as noted in HPI and below [facility] Past Medical History Medical History History of osteomyelitis Back History of diabetes mellitus Vertigo Hypertension High cholesterol Surgical History Surgical History History of back surgery History of right shoulder replacement History of cholecystectomy H/O bariatric surgery Social History Social History Smoking status: Light tobacco smoker Tobacco type: cigars Additional smoking assessment comments: one cigar once to twice a month. Alcohol intake: current Meds Home Medications and Allergies Home Medications ?Medication ?Instructions ?Recorded ?Confirmed ?Type amlodipine 10 mg tablet 10 mg PO DAILY 12/19/24 12/19/24 History atorvastatin 80 mg tablet 80 mg PO HS 12/19/24 12/19/24 History losartan 100 mg tablet 100 mg PO DAILY 12/19/24 12/19/24 History magnesium glycinate 100 mg (as 100 mg PO HS 12/19/24 12/19/24 History glycinate) tablet (Mag Glycinate) Allergies Allergy/AdvReac Type Severity Reaction Status Date / Time No Known Allergies Allergy Verified 12/19/24 16:08 Vital Signs Vital Signs - 24 hr 12/19/24 09:01 12/19/24 10:58 12/19/24 11:01 Temperature 98.2 F Pulse Rate 87 86 74 Respiratory Rate 16 24 H 22 H Blood Pressure 152/74 H 155/78 H 135/76 Pulse Oximetry 100 100 100 12/19/24 13:02 12/19/24 13:05 12/19/24 13:31 Temperature Pulse Rate 56 L 57 L 58 L Respiratory Rate 15 17 15 Blood Pressure 173/87 H 173/87 H 177/89 H Pulse Oximetry 98 99 98 Exam Const: General: comfortable and no acute distress Other: , male, elderly, nontoxic appearance HENMT: Face/Nose/Sinus: Normal nares present Mouth: Yes moist mucous membranes Eyes: General: appearance normal, both eyes and all related structures Sclera: sclerae normal Pupils: Equal, round and reactive pupils present EOM: EOMs intact bilaterally Other: Ptosis to the right eye. Resp: Effort & Inspection: normal respiratory effort Auscultation: clear to auscultation bilaterally Cardio: Rate: regular rate Rhythm: regular rhythm GI: Other: Abdomen soft, nondistended, nontender. Normoactive bowel sounds in all quadrants. Skin: General skin exam: normal color and no rashes or lesions noted Wounds: no wounds Neuro: Speech: normal speech Motor exam (neuro): 5/5 motor strength present throughout Sensory Exam: normal sensation Other: A&O x4. EOM intact. However ptosis noted to right eyelid. Double vision noted with both eyes open, resolves with covering of right eye and covering of left eye. Extrem: General: normal to inspection Psych: Mental Status: mental status grossly normal Affect: normal affect Other: Good insight and judgment, very pleasant H&P: Results Labs Labs: Short CBC 12/19/24 Range/Units 10:25 WBC 8.7 (4.5-10.0) K/mm3 Hgb 13.0 L (14.0-18.0) g/dL Hct 42.9 (42.0-52.0) % Plt Count 266 (150-375) k/mm3 BMP 12/19/24 10:25 Sodium 135 L Potassium 4.2 Chloride 103 Carbon Dioxide 25 BUN 16 Creatinine 1.00 Glucose 333 H Calcium 9.3 Cardiac Enzymes 12/19/24 Range/Units 10:25 Troponin I < 0.012 (0.000-0.034) ng/mL Liver Function 12/19/24 Range/Units 10:25 Total Bilirubin 1.7 H (0.2-1.3) mg/dL AST 29 (17-59) U/L ALT 17 (6-50) U/L Alkaline Phosphatase 187 H (38-126) U/L Albumin 4.5 (3.5-5.1) g/dL Assessment and Plan Assessment and plan (1) Vertical diplopia: Code(s): H53.2 - Diplopia Status: Acute Assessment and Plan: New deficits of double vision described as images stacked on top of each other that resolves with closing of one eye but returns with opening of both eyes, right eyelid droop, and mild balance disturbance. Onset on Tuesday, 12/15, around 11:30 a.m.. Presentation to [facility] on 12/19. Patient is not candidate for thrombectomy or thrombolytics due to time frame. Admitted for further evaluation of possible stroke. Head/neck CT unremarkable and CXR unremarkable. - admission for observation and telemetry - neurology consulted - brain MRI w/wo ordered - echo w/Bubble ordered - neuro checks Q4 - as the patient is currently not experiencing any other symptoms beyond vision changes, will hold off on PT/OT/ST evaluation - monitor daily labs,check lipid panel and A1C - start Plavix 75 mg PO and ASA 81 mg. Continue atorvastatin 80 mg daily. - consider 30 day event monitoring at discharge if abnormalities noted on telemetry monitoring - check UA (2) High cholesterol: Code(s): E78.00 - Pure hypercholesterolemia, unspecified Status: Chronic Assessment and Plan: - continue atorvastatin 80 mg daily (3) Hypertension: Qualifiers: Hypertension type: primary hypertension Qualified Code(s): I10 - Essential (primary) hypertension Code(s): I10 - Essential (primary) hypertension Status: Chronic Assessment and Plan: - chronic, currently - continue home medications: Amlodipine 10 mg daily, losartan 100 mg daily - monitor (4) DM type 2 (diabetes mellitus, type 2): Qualifiers: Diabetes mellitus long-term insulin use: without long-term use Diabetes mellitus complication status: with hyperglycemia Qualified Code(s): E11.65 - Type 2 diabetes mellitus with hyperglycemia Code(s): E11.9 - Type 2 diabetes mellitus without complications Status: Chronic Assessment and Plan: Patient has a previous history of type 2 diabetes for which he was on medications for some time. Underwent gastric bypass surgery 2 and half years ago and was able to lose 113 lb. Due to the weight loss he was taken off of his diabetes medications. Did have some hyperglycemia during a hospital stay for osteomyelitis to his back last year, however was on steroids at that time. Glucose upon admission was 304 concerning for recurrence of type 2 diabetes. Plan to check A1c with sliding scale in interim. - if A1c elevated, will need consult to staff development educator and dietitian to re-educate given patient has not been consider diabetic for the past 2 and half years - diabetic diet - hypoglycemia protocol - POC blood glucose ACHS - correct regimen ordered - high dose TIDWM, based off BMI - A1C not on file, updating Plan Diet: Diabetic GI Prophylaxis: N/a DVT Prophylaxis: SCDs IV fluids: None Lines/Tubes: Peripheral IV Code Status: Full code Quality VTE Prophylaxis VTE prophylaxis: mechanical ordered Hospitalist [facility] Advance Care Plan I have confirmed that the patient's Advanced Care Plan is present, code status is documented, or surrogate decision maker is listed in patient medical record.: Yes Medication Reconciliation I have utilized all available resources to obtain, update and review the patients current medications (includes all prescriptions, OTC, herbals, cannabis, and nutritional supplements).: Yes
[2024-12-19 15:03] LABS: Appearance Urine Clear (Clear); Specific Grav Ur 1.040 (1.001-1.035)
[2024-12-19 15:04] LABS: Glucose Urine UA 3+ mg/dL (Negative); Nitrate Urine Negative (Negative)
[2024-12-19 15:05] LABS: Add Urine Microscopic? YES; Leukocyte Esterase Ur Negative LEU/UL (Negative)
[2024-12-19 15:08] LABS: Non Pathogenic Casts Not Present
--- NOTE | 2024-12-19 15:49 | ADMGEN ---
This patient, Lul Yoder IV, was admitted to Medical Room 340-01. Patient/family oriented to hospital policies and general routines including ID bracelet, bed and alarms, visiting hours, pain management, procedures, bathroom and other care routines, personal items, smoking policy, room service/diet, and visiting hours. Information on how to activate the Rapid Response Team has been discussed. Patient/Family are encouraged to report perceived risks to care and to ask questions if they do not understand what they are told or what they should do.
[2024-12-19] MEDS: INSULIN ASPART (*BKC) 100 UNITS/ML SUB-Q (17:51)
[2024-12-19] MEDS: ATORVASTATIN 40 MG TABLET 80 MG PO (19:49)
[2024-12-20] VITALS (7 sets, daily range): BP systolic 130–138; BP diastolic 70–73; PULSE 55–82; RESP 19–20; TEMP 36.4; O2SAT 99–100
--- NOTE | 2024-12-20 | ECHO_ITS ---
Patient Info Name: Lul Yoder Age: 69 years : 1955 Gender: Male Ht: 69 in Wt: 246 lbs BSA: 2.37 m2 HR: 72 bpm BP: 153 / 73 mmHg Technical Quality: Fair Exam Date: 12/20/2024 9:08 AM Patient Status: O Admit Date: 12/19/2024 Exam Type: CA echo dop bubble study w con Complete two-dimentional, color flow and Doppler transthoracic echocardiogram is performed with agitated saline and with contrast to opacify the left ventricle and to improve the delineation of the left ventricle endocardial borders. Staff Referring Physician: Clementina Arredondo Profile Mill Operator Tape Control: Salvador García III Attending Provider: Rhona Melo Contrast/Agitated Saline Contrast/Ag. Saline: Definity Amount: 2.00 ml Administered By: Salvador García III Existing IV Access: Yes IV Access Condition: patent with no signs of infiltration Contrast/Ag. Saline: Agitated Saline Amount: 12.00 ml Administered By: Lynette Bernard Existing IV Access: Yes IV Access Condition: patent with no signs of infiltration Summary 1. There is normal biventricular size and systolic function. 2. There is mild biatrial enlargement. 3. There are no significant valvular abnormalities. 4. Agitated saline study did not reveal any right to left shunt. Left Ventricle The left ventricle is normal in size and systolic function. The left ventricular ejection fraction is visually estimated to be 65-70%. Right Ventricle The right ventricle is normal in size and systolic function. Left Atria The left atrium is mildly dilated. Right Atria The right atrium is mildly dilated. Atrial Septum Agitated saline study did not reveal any right to left shunt. Aortic Valve The aortic valve is not well visualized. There is no aortic stenosis. There is no aortic regurgitation. Pulmonic Valve The pulmonic valve is not well visualized. Mitral Valve The mitral valve is normal. There is no mitral regurgitation. Tricuspid Valve The tricuspid valve is grossly normal. There is trace tricuspid regurgitation. Pericardium/Pleural Pericardium is normal in appearance with no evidence for significant pericardial effusion. Inferior Vena Cava Normal inferior vena cava with >50% collapse upon inspiration consistent with normal right atrial pressure, 3 mmHg. Aorta The visualized portions of the proximal ascending aorta measures 3.6 cm in diameter. Left Ventricular Outflow Tract Name Value Normal LVOT 2D LVOT Diameter 2.4 cm LVOT Doppler LVOT Peak Velocity 108 cm/s LVOT Peak Gradient 5 mmHg LVOT Mean Gradient 2 mmHg LVOT VTI 24 cm LVOT VTI/AV VTI Ratio 0.7 LVOT Stroke Volume 111 ml Pulmonic Valve Name Value Normal PV Doppler PV Peak Velocity 108 cm/s PV Peak Gradient 5 mmHg PV Mean Gradient 2 mmHg Mitral Valve Name Value Normal MV Doppler MV Peak Gradient 5 mmHg MV Mean Gradient 1 mmHg MV Area (Cont Eq VTI) 4.3 cm2 MV Diastolic Function MV E Peak Velocity 65 cm/s MV A Peak Velocity 88 cm/s MV E/A 0.7 MV Decel Time (PW) 177 ms MV Annular TDI MV E/e' (Septal) 8.4 MV E/e' (Lateral) 7.7 MV E/e' (Average) 8.0 Tricuspid Valve Name Value Normal Estimated PAP/RSVP RA Pressure 3 mmHg <=5 TV Annular TDI TV Lateral Aaliyah s' Velocity 21.2 cm/s >=9.5 Aortic Valve Name Value Normal AV Doppler AV Peak Velocity 195 cm/s AV Peak Gradient 15 mmHg AV Mean Gradient 7 mmHg AV VTI 35 cm AV Area (Cont Eq VTI) 3.2 cm2 >=3.0 AV Area (Cont Eq Edwin) 2.6 cm2 AV DI (Edwin) 0.56 AV Regurgitation 2D LVOT Area 4.6 cm2 Ventricles Name Value Normal LV Dimensions 2D/MM LVOT Diameter 2.4 cm LV Fractional Shortening/Ejection Fraction 2D/MM LV Diastolic Volume (4C MOD) 153 ml LV EF (4C MOD) 72 % LV Diastolic Volume (2C MOD) 92 ml LV EF (2C MOD) 69 % LV Diastolic Volume (BP MOD) 119 ml 62-150 LV Diastolic Volume Index (BP MOD) 50 ml/m2 34-74 LV Systolic Volume (BP MOD) 36 ml 21-61 LV Systolic Volume Index (BP MOD) 15 ml/m2 11-31 LV EF (BP MOD) 70 % 52-72 LV Diastolic Length (4C) 8.3 cm LV Systolic Length (4C) 6.6 cm LV Stroke Volume (4C MOD) 111 ml Atria Name Value Normal LA Dimensions LA Volume (4C A-L) 111 ml LA Volume (BP A-L) 82 ml RA Dimensions RA Systolic Major [place] Length (4C) 5.9 cm 2.1-2.7 RA Area (4C) 24.1 cm2 <=18.0 Report Signatures
[2024-12-20 03:50] LABS: Hematocrit 36.0 % (42.0-52.0); Hemoglobin 10.9 g/dL (14.0-18.0); Immature Granulocyte Percent A 0.4 % (0-0.5); Lymphocytes Absolute Auto 1.45 K/mm3 (0.9-3.2); Mean Corpuscular HGB Conc 30.3 g/dl (32-36); Mean Corpuscular Hemoglobin 23.2 pg (26-34); Mean Corpuscular Volume 76.8 fl (80-100); Nucleated Red Blood Cells Absolute Auto 0.000 K/mm3 (0.0-0.012); Nucleated Red Blood Cells Perc 0.0 % (0.0-0.2); Platelet Count Result 225 k/mm3 (150-375); Red Blood Count 4.69 M/mm3 (4.6-6.20); White Blood Count 7.1 K/mm3 (4.5-10.0)
[2024-12-20 04:06] LABS: Anion Gap 5 mmol/L (4-12); Blood Urea Nitrogen 15 mg/dL (9-20); Calcium 9.0 mg/dL (8.4-10.2); Carbon Dioxide 24 mmol/L (22-30); Chloride 105 mmol/L (98-107); Cholesterol 170 mg/dL (0-200); Estimated CRCL calculation 77 ml/min; Estimated Glomerular Filt Rate > 60; Glucose 179 mg/dL (65-110); HDL Direct 51 mg/dL; Potassium 4.1 mmol/L (3.4-5.0); Sodium 134 mmol/L (137-145); Triglycerides 158 mg/dL (<150)
[2024-12-20 04:24] LABS: Hemoglobin A1C 11.1 % (<5.7)
[2024-12-20] MEDS: CLOPIDOGREL BISULFATE 75 MG TABLET PO (08:28)
[2024-12-20] MEDS: LOSARTAN POTASSIUM 100 MG TABLET PO (08:28)
[2024-12-20] MEDS: ASPIRIN 81 MG ENTERIC TABLET PO (08:28)
--- NOTE | 2024-12-20 09:15 | P.PNIM_ITS ---
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 He tried to watch TV and noticed that he had double vision. He states that it has been waxing. Better in morning and worse at night. Per the she has noticed him slurring his words without drinking. Patient does have a right eyelid droop within fully opening his eyes. Patient states that he had normal vision briefly after applying ice to his eye. It is not diagnostic however it can being indicative of ocular myasthenia gravis. Head/neck CT unremarkable and CXR unremarkable. Neurology consulted MRI with no acute infarct Echo with bubble study negative for PFO, EF 65-70% Frequent neuro checks UA negative for infection Due to acute onset and waxing and waning symptoms it is unlikely that it is from uncontrolled diabetes Ice pack test with improvement in vision indicative of myasthenia gravis AChR antibodies MuSK pending-likely a send out lab Eye patch (2) DM type 2 (diabetes mellitus, type 2): Qualifiers: Diabetes mellitus complication status: with hyperglycemia Diabetes mellitus half-way insulin use: without superintendent marine oil terminal use Qualified Code(s): E11.65 - Type 2 diabetes mellitus with hyperglycemia Code(s): E11.9 - Type 2 diabetes mellitus without complications Status: Chronic Assessment and Plan: Blood sugar 304 on admission- A1C 11.1 Patient has a previous history of type 2 diabetes for which he was on medications for some time. Underwent gastric bypass surgery 2 and half years ago and was able to lose 113 lb. Due to the weight loss he was taken off of his diabetes medications. Uncontrolled diabetes could be the cause of his vision issues consult to personal development educator and dietitian to re-educate given patient has not been consider diabetic for the past 2 and half years - diabetic diet - hypoglycemia protocol - POC blood glucose ACHS - correct regimen ordered - high dose TIDWM, based off BMI Lantus added (3) High cholesterol: Code(s): E78.00 - Pure hypercholesterolemia, unspecified Status: Chronic Assessment and Plan: - continue atorvastatin 80 mg daily (4) Hypertension: Qualifiers: Hypertension type: primary hypertension Qualified Code(s): I10 - Essential (primary) hypertension Code(s): I10 - Essential (primary) hypertension Status: Chronic Assessment and Plan: - chronic, currently - continue home medications: Amlodipine 10 mg daily, losartan 100 mg daily - monitor Plan Diet: Diabetic GI Prophylaxis: N/a DVT Prophylaxis: SCDs IV fluids: None Lines/Tubes: Peripheral IV Code Status: Full code Time Spent With Patient Time with patient: Greater than 35 minutes Subjective Date/time seen: 12/20/24 09:15 Interval history: 69 y/o M with PMH of diabetes, vertigo, HTN, and HLD presents here with double vision. Patient states that was not a slow onset, he states that he was working on the [employer] digging holes with no issues with his vision then went inside rest. He tried to watch TV and noticed that he had double vision. He states that it has been waxing. Better in morning and worse at night. Per the she has noticed him slurring his words without drinking. Patient states that he had normal vision briefly after applying ice to his eye. It is not diagnostic however it can being indicative of ocular myasthenia gravis. Review of Systems Review of Systems: 12 systems were reviewed and are negativ e except for as per HPI. Exam Narrative: General: well appearing, appears stated age. HEENT: normocephalic, atraumatic. Mucous membranes moist. EOMI, PERRLA, bilateral sclera anicteric, no conjunctival injection. Neck supple without JVD, lymphadenopathy, or bruit. Right eyelid droop, symmetrical face Respiratory: clear bilaterally. No rales/rhonic/wheezes. Cardiovascular: Regular rate and rhythm, normal S1-S2. No murmurs, rubs, or clicks. PMI is nondisplaced, capillary refill less than 3 second. Abdomen: Soft, round, no pulsatile masses, nondistended and nontender. No rebound, no guarding. Bowel sounds present to all four quadrants. No high pitch or tinkling sounds, resonant to percussion. Extremities: No cyanosis, clubbing, or edema present. Pulses are palpable 2/2. Active ROM to all four extremities. Neuro: Alert and orientated x 4. PERRLA. Cranial nerves 2-12 intact without focal deficit. Skin: Warm, dry, and intact, without rash, erythema, or lesion. Psych: pleasant, cooperative, normal speech, normal affect, no hallucinations, no dysarthia Objective Data Vital Signs Vital Signs: Vital Signs - 24 hr 12/19/24 10:58 12/19/24 11:01 12/19/24 13:02 Temperature Pulse Rate 86 74 56 L Respiratory Rate 24 H 22 H 15 Blood Pressure 155/78 H 135/76 173/87 H Pulse Oximetry 100 100 98 Oxygen Delivery 12/19/24 13:05 12/19/24 13:31 12/19/24 14:01 Temperature Pulse Rate 57 L 58 L 56 L Respiratory Rate 17 15 16 Blood Pressure 173/87 H 177/89 H 177/85 H Pulse Oximetry 99 98 100 Oxygen Delivery 12/19/24 16:05 12/19/24 18:18 12/19/24 20:00 Temperature Pulse Rate 66 58 L Respiratory Rate Blood Pressure Pulse Oximetry Oxygen Delivery Room Air 12/19/24 20:18 12/20/24 00:00 12/20/24 04:00 Temperature 97.5 F L Pulse Rate 60 55 L 55 L Respiratory Rate 18 Blood Pressure 153/73 H Pulse Oximetry 99 Oxygen Delivery 12/20/24 06:00 12/20/24 08:00 Temperature 97.5 F L Pulse Rate 62 Respiratory Rate 20 Blood Pressure 138/73 Pulse Oximetry 100 Oxygen Delivery Room Air Intake/Output Intake/Output: Intake & Output 12/17/24 12/18/24 12/19/24 12/20/24 23:59 23:59 23:59 23:59 Intake Total 730 740 Balance 730 740 Meds/Results Medications: Active Medications Generic Name Dose Route Start Last Admin Trade Name Freq PRN Reason Stop Dose Admin Amlodipine Besylate 10 mg 12/20/24 09:00 12/20/24 08:28 Amlodipine Besylate 10 Mg Tablet PO 10 mg DAILY MAIRA Administration Aspirin 81 mg 12/20/24 09:00 12/20/24 08:28 Aspirin 81 Mg Enteric Tablet PO 81 mg QAM MAIRA Administration Atorvastatin Calcium 80 mg 12/19/24 21:00 12/19/24 19:49 Atorvastatin 40 Mg Tablet PO 80 mg HS MAIRA Administration Clopidogrel Bisulfate 75 mg 12/20/24 09:00 12/20/24 08:28 Clopidogrel Bisulfate 75 Mg Tablet PO 75 mg QAM MAIRA Administration Dextrose 12.5 gm 12/19/24 14:14 Dextrose 50% 25 Gm/50 Ml Syringe IV PUSH PRN PRN Hypoglycemia Protocol Glucagon 1 mg 12/19/24 14:14 Glucagon For Inj 1 Mg Vial IM PRN PRN Hypoglycemia Protocol Glucose 15 gm 12/19/24 14:14 Glucose Oral Gel 15 Gm Of Glucse In 37.5 Gm Tube PO PRN PRN Hypoglycemia Protocol Dextrose 1,000 mls @ 100 mls/hr 12/19/24 14:14 Dextrose 5% 1,000 Ml IVPB PRN PRN Hypoglycemia Protocol Insulin Aspart 4 - 8 units 12/19/24 17:00 12/20/24 08:27 Insulin Aspart (*Bkc) 100 Units/Ml SUB-Q Not Given TIDWM MAIRA Protocol Losartan Potassium 100 mg 12/20/24 09:00 12/20/24 08:28 Losartan Potassium 100 Mg Tablet PO 100 mg DAILY MAIRA Administration Perflutren Lipid Microsphere 0 ml 12/19/24 14:12 Perflutren Lipid Microspheres 1.5 Ml Vial Diluted To 10 Ml Total Volume IV PUSH 12/22/24 14:13 ONCE PRN adequate visualization Protocol Radiology Results: ITS Impressions Chest X-Ray 12/19/24 11:30 IMPRESSION: 1. No acute cardiopulmonary findings given portable technique. Head/Neck CTA 12/19/24 11:33 IMPRESSION: CT HEAD: 1. No acute intracranial findings. CTA NECK: 1. No ICA stenosis or other acute arterial abnormality. CTA HEAD: 1. No large vessel arterial occlusive disease or other acute findings. 2. No aneurysms. Brain MRI 12/19/24 20:16 IMPRESSION: No acute infarct is evident on the diffusion weighted images. No pathologic signal intensity, pathologic enhancement, mass or extra-axial collection is noted. Chronic white matter microangiopathic changes. Labs Labs: Laboratory Results - last 24 hr 12/19/24 12/19/24 12/19/24 10:25 10:59 11:14 WBC 8.7 RBC 5.58 Hgb 13.0 L Hct 42.9 MCV 76.9 L MCH 23.3 L MCHC 30.3 L RDW 16.7 H Plt Count 266 MPV 9.3 Immature Gran % (Auto) 0.5 Neut % (Auto) 74.4 H Lymph % (Auto) 12.8 L [place] % (Auto) 7.3 Eos % (Auto) 4.0 Baso % (Auto) 1.0 Lymph # (Auto) 1.11 [place] # (Auto) 0.6 Eos # (Auto) 0.4 H Baso # (Auto) 0.1 Abs Immat Gran (auto) 0.04 H Absolute Neuts (auto) 6.4 Absolute Nucleated RBC 0.000 Nucleated RBC % 0.0 PT 12.6 INR 0.9 APTT 27.0 Sodium 135 L Potassium 4.2 Chloride 103 Carbon Dioxide 25 Anion Gap 7 BUN 16 Creatinine 1.00 Estim Creat Clear Calc 75 Estimated GFR > 60 Glucose 333 H POC Capillary Glucose 304 H Hemoglobin A1c Calcium 9.3 Total Bilirubin 1.7 H AST 29 ALT 17 Alkaline Phosphatase 187 H Troponin I < 0.012 Total Protein 8.2 Albumin 4.5 Triglycerides Cholesterol LDL Cholesterol Direct HDL Direct Urine Color Yellow Urine Appearance Clear Urine pH 5.0 Ur Specific [place] 1.040 H Urine Protein 3+ H Urine Glucose (UA) 3+ H Urine Ketones Negative Ur Blood (Man) Negative Urine Nitrate Negative Urine Bilirubin Negative Urine Urobilinogen 0.2 Leukocyte Esterase Rfl Negative Urine RBC 0-2 Urine WBC 0-5 Ur Squamous Epith Cells None seen Urine Bacteria None seen Urine Casts Not present Hyaline Casts 3-4 H Urine Opiates Screen Negative Urine Methadone Screen Negative Ur Barbiturates Screen Negative Ur Phencyclidine Scrn Negative Ur Amphetamine Screen Negative U Benzodiazepines Scrn Negative Urine Cocaine Screen Negative U Cannabinoids Screen Negative 12/19/24 12/19/24 12/20/24 16:31 19:38 03:41 WBC RBC Hgb Hct MCV MCH MCHC RDW Plt Count MPV Immature Gran % (Auto) Neut % (Auto) Lymph % (Auto) [place] % (Auto) Eos % (Auto) Baso % (Auto) Lymph # (Auto) [place] # (Auto) Eos # (Auto) Baso # (Auto) Abs Immat Gran (auto) Absolute Neuts (auto) Absolute Nucleated RBC Nucleated RBC % PT INR APTT Sodium 134 L Potassium 4.1 Chloride 105 Carbon Dioxide 24 Anion Gap 5 BUN 15 Creatinine 0.97 Estim Creat Clear Calc 77 Estimated GFR > 60 Glucose 179 H POC Capillary Glucose 235 H 241 H Hemoglobin A1c Calcium 9.0 Total Bilirubin AST ALT Alkaline Phosphatase Troponin I Total Protein Albumin Triglycerides 158 H Cholesterol 170 LDL Cholesterol Direct 74 HDL Direct 51 Urine Color Urine Appearance Urine pH Ur Specific [place] Urine Protein Urine Glucose (UA) Urine Ketones Ur Blood (Man) Urine Nitrate Urine Bilirubin Urine Urobilinogen Leukocyte Esterase Rfl Urine RBC Urine WBC Ur Squamous Epith Cells Urine Bacteria Urine Casts Hyaline Casts Urine Opiates Screen Urine Methadone Screen Ur Barbiturates Screen Ur Phencyclidine Scrn Ur Amphetamine Screen U Benzodiazepines Scrn Urine Cocaine Screen U Cannabinoids Screen 12/20/24 12/20/24 03:42 08:09 WBC 7.1 RBC 4.69 Hgb 10.9 L Hct 36.0 L MCV 76.8 L MCH 23.2 L MCHC 30.3 L RDW 16.8 H Plt Count 225 MPV 9.4 Immature Gran % (Auto) 0.4 Neut % (Auto) 64.3 Lymph % (Auto) 20.5 [place] % (Auto) 8.5 Eos % (Auto) 4.9 H Baso % (Auto) 1.4 H Lymph # (Auto) 1.45 [place] # (Auto) 0.6 Eos # (Auto) 0.4 H Baso # (Auto) 0.1 Abs Immat Gran (auto) 0.03 Absolute Neuts (auto) 4.6 Absolute Nucleated RBC 0.000 Nucleated RBC % 0.0 PT INR APTT Sodium Potassium Chloride Carbon Dioxide Anion Gap BUN Creatinine Estim Creat Clear Calc Estimated GFR Glucose POC Capillary Glucose 183 H Hemoglobin A1c 11.1 H Calcium Total Bilirubin AST ALT Alkaline Phosphatase Troponin I Total Protein Albumin Triglycerides Cholesterol LDL Cholesterol Direct HDL Direct Urine Color Urine Appearance Urine pH Ur Specific [place] Urine Protein Urine Glucose (UA) Urine Ketones Ur Blood (Man) Urine Nitrate Urine Bilirubin Urine Urobilinogen Leukocyte Esterase Rfl Urine RBC Urine WBC Ur Squamous Epith Cells Urine Bacteria Urine Casts Hyaline Casts Urine Opiates Screen Urine Methadone Screen Ur Barbiturates Screen Ur Phencyclidine Scrn Ur Amphetamine Screen U Benzodiazepines Scrn Urine Cocaine Screen U Cannabinoids Screen Quality VTE Prophylaxis VTE prophylaxis: mechanical ordered
[2024-12-20] MEDS: PERFLUTREN LIPID MICROSPHERES 1.5 ML VIAL DILUTED TO 10 ML TOTAL VOLUME IV PUSH (09:44)
--- NOTE | 2024-12-20 09:45 | IVDEFINITY ---
Prior to administration of IV Definity the patient was educated on the risks and benefits of the imaging enhancing agent including potential adverse side effects. The patient verbalized understanding. Allergies were verified. No exclusion criteria were identified and at least one of the following inclusion criteria were met: 1) physician request, 2) patient technically difficult to image (per the [place] [employer]ocardi[employer] guidelines of two or more segments not discernable within the apical view), or 3) questionable left ventricular function. ?
--- OUTSIDE RECORDS SUMMARY | 2024-12-20 10:53 | XMS_ITS | Clinical Summary ---
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 Gender Identity Not on file Sexual Orientation [...] 11/21/2018, 2016 Medical Devices Implanted Type Area Portable Track Crew Chief Device Identifier Shelf Expiration Date Model / Serial / Lot Log [id number] - Cement - 1 - Cement [place] G-Hv 40g [id number] Implanted:Qty : 1 on 10/20/2010 at [facility] Cement Right: Knee [employer]ET INC 02/15/2012 [id number] / / [id number] Log [id number] - Cement - 1 - Cement [place] G-Hv 40g [id number] Implanted:Qty : 1 on 10/20/2010 at [facility] Cement Right: Knee [employer] INC 02/15/2012 [id number] / / [id number] Cement [place] Hv 40g 448376 - [id number] Implanted:Qty : 1 on 06/22/2016 by Sage Mack MD at [facility] Cement Left: Knee [employer]ET INC 02/13/2018 [id number] / / [id number] Cement [place] G-Hv 40g [id number] - [id number] Implanted:Qty : 1 on 01/12/2017 by Regis Fallon MD at [facility] Cement Left: 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 [employer] 06/13/2018 [id number] / / [id number] Clip Hemolok Lrg [id number] - Csc - [id number] Implanted:Qty : 1 on 09/23/2023 by Diego Issa MD at [facility] N/A: Abdomen TELEFLEX- WECK CLOSURE SYS 06/14/2027 [id number] / / [id number] Relief Pharmacist Endoclip Iii 5mm W/Cliplogic 809803 - [id number] Implanted:Qty : 1 on 09/23/2023 by Diego Issa MD at [facility] N/A: Bile Duct MEDTRONIC - COVIDIEN 06/13/2026 [id number] / / [id number] Log [id number] - Biomet Vanguard Complete Knee System - 1 - Comp Fem Vngrd Cr Intrlk Rt 70mm [id number] Implanted:Qty : 1 on 10/20/2010 at [facility] Knee Right: Knee [employer] 08/14/2020 [id number] / / [id number] Log [id number] - Biomet Vanguard Complete Knee System - 1 - Plate Tib Cocr Finned 79mm [id number] Implanted:Qty : 1 on 10/20/2010 at [facility] Knee Right: Knee [employer] 04/14/2020 [id number] / / [id number] Comp Fem Vngrd Cr Intrlk Lt 70mm 062640 - [id number] Implanted:Qty : 1 on 06/22/2016 by Sage Mack MD at [facility] Knee Left: Knee [employer] INC 05/04/2026 [id number] / / [id number] Comp Tib Cocr Finned 79mm [id number] - [id number] Implanted:Qty : 1 on 06/22/2016 by Sage Mack MD at [facility] Knee Left: Knee BI[employer] INC 03/05/2026 [id number] / / [id number] Brng Tib Vng Cr 10x79/83 889739 - [id number] Implanted:Qty : 1 on 06/22/2016 by Sage Mack MD at [facility] Knee Left: Knee BI[employer]ET INC 05/06/2021 [id number] / / [id number] Mesh Ventralex 1.7in Circ [id number] - [id number] Implanted:Qty : 1 on 12/17/2013 by Aaliyah Tsang MD at [facility] Mesh N/A: Abdomen CR BARD- DAVOL INC 09/14/2015 [id number] / / [id number] Pin Steinmann Thrd 3.5orj3ww [id number] - [id number] Implanted:Qty : 1 on 01/12/2017 by Regis Flalon MD at [facility] Pin Left: Shoulder JENNI BIOMET [id number] / / [id number] Base Hybrid Cmprhnsv 919056 - [id number] Implanted:Qty : 1 on 01/12/2017 by Regis Fallon MD at [facility] Shoulder Left: Shoulder JENNI BIOMET 10/22/2021 [id number] / / [id number] Post Glnd Mod Hybrid Regenerex Pt-[id number] - [id number] Implanted:Qty : 1 on 01/12/2017 by Regis Fallon MD at [facility] Shoulder Left: Shoulder JENNI BIOMET 10/22/2026 [id number] / / [id number] Head Hum Versa-Dial 477124 - [id number] Implanted:Qty : 1 on 01/12/2017 by Regis Fallon MD at [facility] Shoulder Left: Shoulder JENNI BIOMET [id number] 09/30/2026 [id number] / / [id number] Stem Hum Comp Mini 13mm 174990 - [id number] Implanted:Qty : 1 on 01/12/2017 by Regis Fallon MD at [facility] Shoulder Left: Shoulder JENNI BIOMET [id number] 12/17/2026 [id number] / / [id number] Description:All Biomet recon shoulder components are processed on requisition,[id number]. Adaptor Hum Versa-Dial Tpr 651952 - [id number] Implanted:Qty : 1 on 01/12/2017 by Regis Fallon MD at [facility] Shoulder Left: Shoulder JENNI BIOMET [id number] 11/10/2026 079502 / / [id number] E-Poly Implanted:Qty : 1 on 10/20/2010 at [facility] Right: Knee [employer] INC 02/14/2015 [id number] / / [id number] Description:Epoly tibial felix ring is not part of total knee cap pricing,will be charged separately. Procedures Procedure Name Priority Date/Time Associated Diagnosis Comments HEMOGLOBIN A1C Routine 09/21/2023 9:03 AM CDT from Last 3 Months or Most Recently Relevant to Health Maintenance Results * (ABNORMAL) HEMOGLOBIN A1C (09/21/2023 9:03 AM CDT) HEMOGLOBIN A1C 11.3(H) <=5.6 % 09/21/2023 10:51 AM CDT [facility] EST. AVG GLUCOSE, A1C 278 mg/dL 09/21/2023 10:51 AM CDT [facility] [place] [facility] Blood Venipuncture / Unknown 09/21/2023 9:03 AM CDT 09/21/2023 9:30 AM CDT Narrative [facility] - 09/21/2023 10:51 AM CDT HGB A1C INTERPRETATION NORMAL: <5.7% PRE-DIABETES: 5.7 - 6.4% DIABETES: 6.5% OR GREATER Denise MARLEY CHEMISTRY ORDERABLES Final Result [facility]# [id number] [address] [address] from Last 3 Months or Most Recently Relevant to Health Maintenance Insurance AETNA PPO MCR RX AETNA Medicare Part D RX [employer] (INTERNAL) [facility] Advance Directives For more information, please contact: [phone] * Full Code (Latest Code Status on [...] 2:56 PM 01/13/2017 4:46 PM Care Teams Riding Coach Relationship Specialty Start Date End Date Asif eLal MD PCP - General Student in an Organized Health Care Education/Training Program 01/02/18
--- OUTSIDE RECORDS SUMMARY | 2024-12-20 10:54 | XMS_ITS | Encounter Summary ---
Author Organization [facility] Address [address] [place] [address] Care Team Providers Care Personnel Officer Name Role Phone Asif Leal MD Primary Care Provider [phone] Reason for Visit * Reason Onset Date Comments Admitted with lumbar osteo- developed MARCIAL 09/25/2023 Spoke w/ Karissa @ Dr. 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
--- OUTSIDE RECORDS SUMMARY | 2024-12-20 10:54 | XMS_ITS | Clinical Summary ---
Author Organization [facility] Address [address] [place] [address] Care Team Providers Care Kiln Tester Name Role Phone Moreno Reyes MD Primary Care Provider [phone] Medications amLODIPine (NORVASC) 10 mg tablet Take [...] PT/OT, pain control Lumbar epidural injection at [facility] 11/03 Steroid taper complete Type 2 [...] on file Legal Sex Male 12:29 AM CASSANDRA CONSULTANT Gender Identity Not on file Sexual Orientation Not on file Last Filed Vital Signs Vital Sign Reading Time Taken Comments Blood Pressure - - Pulse 76 11/15/2023 9:04 AM CDT Temperature - - Respiratory Rate 22 11/15/2023 9:04 AM CDT Oxygen Saturation - - Inhaled Oxygen Concentration - - Weight 105.7 kg (233 lb) 03/13/2024 11:55 AM CASSANDRA CONSULTANT Height 177.8 cm (5' 10) 03/13/2024 11:55 AM CASSANDRA CONSULTANT Body Mass Index 33.43 03/13/2024 11:55 AM CASSANDRA CONSULTANT Plan of Treatment Health Maintenance Due Date [...] AA) Screen Completed 10/30/2023, 10/03/2023, 09/20/2023 Insurance [employer] [facility] [employer] MEDICARE PPO [employer] MEDICARE PPO Care Teams Kiln Tester Relationship Specialty Start Date End Date Moreno Reyes MD [address] [place] [address] PCP - General Family Medicine 12/21/23
--- OUTSIDE RECORDS SUMMARY | 2024-12-20 10:54 | XMS_ITS | Encounter Summary ---
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
--- OUTSIDE RECORDS SUMMARY | 2024-12-20 10:54 | XMS_ITS | Encounter Summary ---
Author Organization [facility] Address [address] [place] [address] Care Team Providers Care Farm Laborer Name Role Phone Asif Leal MD Primary Care Provider [phone] Reason for Visit * Reason Onset Date Comments Possible L5-S1 discitis 09/21/2023 LEFT SEC URE CTARACHITO HICKEY / DR. [facility] : Possible L5-S1 discitis; a ntibiotic recommendations 09/21/2023 SPOKE WITH IRON / DR. SALVADOR OWEN EXCHANGE presented to OSH w/ RUQ pain ; US showed cholelithiasis w/ g 09/21/2023 LEFT SECURE CATRACHITO HICKEY / DR. 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
--- OUTSIDE RECORDS SUMMARY | 2024-12-20 10:54 | XMS_ITS | Encounter Summary ---
Author Organization [facility] Address [address] [place] [address] Care Team Providers Care Caravan Park And Camping Ground Manager Name Role Phone Dulce Maria Leal MD Primary Care Provider Un available Encounter Details Date Type Department Care Team (Late st Contact Info) Description 01/17/2019 Telephone [facility] General Surgery [address] [facility] [address] [place] [address] Acute Care Surgery, Pob Social [...] on file Legal Sex Male 7:58 PM [place] Gender Identity Not on file Sexual Orientation Not on file documented as of this encounter Plan of Treatment Not on file documented as of this encounter Visit Diagnoses Not on filedocumented in this encounter Additional Health Concerns Infection Onset Date Last Indicated Resolved Time R/O COVID-19 08/09/2021 08/09/2021 08/09/2021 6:54 PM CDT documented as of this encounter Care Teams Caravan Park And Camping Ground Manager Relationship Specialty Start Date End Date Dulce Maria Leal MD PCP - General Family Medicine 01/02/19 documented as of this encounter
--- OUTSIDE RECORDS SUMMARY | 2024-12-20 10:54 | XMS_ITS | Clinical Summary ---
Author Organization [facility] Address [address] [place] [address] Care Team Providers Care Senior Research Manager Name Role Phone Moreno Reyes MD Primary Care Provider [phone] Allergies No known active allergies Medications losartan [...] Type Department Care Team Description 10/12/2024 Refill [facility] [place] [address] [place] [address] [address] [place] [address] Moreno Reyes MD Medication Refill 09/20/2024 10:30 AM CDT Office Visit [facility] [address] [place] [phone] Taz Siu PA-C Status post reverse total shoulder replacement, right (Primary Dx); Primary osteoarthritis of right shoulder; 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 [place] [address] Taz Siu PA-C Primary osteoarthritis of right [...] drink = 0.6 oz pur e alcohol) [facility] Utilities Answer Date Recorded In the [...] place to sleep or slept in a senior living (including now)? No 10/27/2023 Alcohol Use Answer [...] total shoulder replacement, right Taz Siu PA-C [facility] DIAG ORDERABLES Final Result * (ABNORMAL) HEMOGLOBIN A1C (06/12/2024 11:58 AM CDT) Hemoglobin A1C 10.1(H) 4.0 - 6.0 % [facility] Estimated Average Glucose 243(H) 68 - 114 MG/DL [facility] 06/12/2024 11:5 8 AM CDT 06/12/2024 4:59 PM CDT Corey He MD CHEMISTRY ORDERABLES Final Resul t [facility] [address] [place] [address], [facility] [phone] * US ABDOMEN LIMITED (09/20/2023 2:40 PM CDT) Anatomical Region Laterality Modality Abdomen Other 09/20/2023 2:40 PM CDT Narrative 09/20/2023 4:21 [place] [address] [place] [address] IMAGING REPORT Name: NA YODER Room #: : 1955 Bed #: Age: 67 Years Patient Type: Outpatient Order Date/Time: [id number] Sex: M Admit Date/Time: Order#: Accession#: Exam Description: Admitting Diagnosis: [id number] US-ABDOMEN LTD Dictated By: Lazaro Trejo Ordering [...] 67 Years Patient Type: Outpatient Order Date/Time: [id number] Sex: M The right kidney measures 11.3 [...] Procedure Note Lazaro Trejo MD - 10/02/2023 [place], [place] [address] [place], [place] [id number] IMAGING REPORT Name: NA YODER Room #: : 1955 Bed #: Age: 67 Years Patient Type: Outpatient Order Date/Time: [id number] Sex: M Admit Date/Time: Order#: Accession#: Exam Description: Admitting Diagnosis: [id number] US-ABDOMEN LTD Dictated By: Lazaro Trejo Ordering [...] 67 Years Patient Type: Outpatient Order Date/Time: [id number] Sex: M The right kidney measures 11.3 [...] by: Lazaro Trejo DO 09/20/2023 04:18 PM [employer] PAGE 2 OF 2 us Tray Arrieta DO [facility] ORDERABLES Devi l Result from Last 3 Months or Most Recently Relevant to Health Maintenance Insurance [employer] MEDICARE [employer] MEDICARE Care Teams Senior Research Manager Relationship Specialty Start Date End Date Moreno Reyes MD [address] [place] [address] PCP - General Family Medicine 10/18/23
--- OUTSIDE RECORDS SUMMARY | 2024-12-20 10:54 | XMS_ITS | Clinical Summary ---
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 Male 7:58 PM LACE FINISHER Gender Identity Not on file Sexual Orientation Not on file Last Filed Vital Signs Vital Sign Reading Time Taken Comments Blood Pressure 128/68 01/06/2019 9:01 AM LACE FINISHER Pulse 76 01/06/2019 7:33 AM LACE FINISHER Temperature 36.6 C (97.9 F) 01/06/2019 7:33 AM LACE FINISHER Respiratory Rate 22 01/06/2019 7:33 AM LACE FINISHER Oxygen Saturation 92% 01/06/2019 7:51 AM LACE FINISHER Inhaled Oxygen Concentration - - Weight 134 kg (295 lb 6.7 oz) 01/06/2019 6:07 AM LACE FINISHER Height 175.3 cm (5' 9) 01/02/2019 11:35 PM LACE FINISHER Body Mass Index 43.63 01/02/2019 11:35 PM LACE FINISHER Plan of Treatment Health Maintenance Due Date [...] patient's age to complete this topic Insurance [facility]IC[facility] Advance Directives For more information, please contact: [phone] * Full Code (Latest Code Status on File) Date Activated Date Inactivated Comments 01/02/2019 11:42 PM 01/06/2019 1:16 PM Care Teams Fire Hazard Inspector Relationship Specialty Start Date End Date Dulce Maria Leal MD PCP - General Family Medicine 01/02/19
--- OUTSIDE RECORDS SUMMARY | 2024-12-20 10:54 | XMS_ITS | Encounter Summary ---
Author Organization [facility] Address 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 [address] [email or web address] Noninvasive Vascular Lab Peripheral Venous Study Patient: Lul Yoder Study ID: BLOOD FLOW STUDY Gender: Sania : 1955 Age: 52 years Race: 1 Room: Bed: Height: Study Date: October 01, 2008 Patient status: Outpatient Weight: Access. #: [id number] POC: Pourer Metal: Nayan Ordering: Consuelo Attending MD: Consuelo Michel [...] 18:21:10 Procedure Note Provider, Historical - 10/01/2008 [place] [address] [place] [address] [email or web address] Noninvasive Vascular Lab Peripheral Venous Study Patient: Lul Yoder Study ID: BLOOD FLOW STUDY Gender: M : 1955 Age: 52 years Race: 1 Room: Bed: Height: Study Date: October 01, 2008 Patient status: Outpatient Weight: Access. #: [id number] POC: Pourer Metal: Nayan Ordering: Consuelo Ji MD: Consuelo Michel [...] documented as of this encounter Care Teams Instructor Ground Services Relationship Specialty Start Date End Date Asif Leal MD PCP - General Student in an Organized Health Care Education/Training Program 01/02/18 documented as of this encounter
--- OUTSIDE RECORDS SUMMARY | 2024-12-20 10:54 | XMS_ITS | Encounter Summary ---
Author Organization [facility] Address [address] [place] [address] Care Team Providers Care Wiring Mechanic Name Role Phone Dulce Maria Leal MD Primary Care Provider Un available Encounter Details Date Type Department Care Team (Late st Contact Info) Description 05/19/2022 Documentation [facility] [address] [place] [phone] Moreno Reyes MD [address] [place] [address], [place] [address] Social History Tobacco Use Types Packs/Day Years Used Date Smoking Tobacco: Former Cigarettes 0 03/04/2005 - 03/05/2015 Smokeless Tobacco: Never Comments:1 cigar a week Alcohol Use Standard Drinks/Week Comments Not Asked 1 (1 standard drink = 0.6 oz pur e alcohol) Sex and Gender Information Value Date Recorded Sex Assigned at Not on file 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
--- OUTSIDE RECORDS SUMMARY | 2024-12-20 10:54 | XMS_ITS | Encounter Summary ---
Author Organization [facility] Address [address] [place] [address] Care Team Providers Care Spring Former Machine Name Role Phone Asif Leal MD Primary Care Provider Reason for Visit * Reason Onset Date Comments Lumbar Radiculopathy 10/31/[address] SNELL ON CELL Encounter Details Date Type Department Care Team (Late st Contact Info) Description 10/31/2023 Telephone [facility] Admitting [address] [place] [address] [place] [address] [facility] [address] [place] [address] Lumbar Radiculopathy (SPOKE W DR. 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
--- OUTSIDE RECORDS SUMMARY | 2024-12-20 10:54 | XMS_ITS | Clinical Summary ---
Author Organization [facility] Address [address] [place] [address] Care Team Providers Care Dry Cell Assembly Machine Tender Name Role Phone Macey Alvarez DO Primary Care Provider [phone] Social History Tobacco Use Types Packs/Day Years Used Date Smoking Tobacco: Never Assessed Sex and Gender Information Value Date Recorded Sex Assigned at Male 12/17/2024 8:33 AM AGRICULTURAL ADVISER Legal Sex Male 1:05 PM CDT Gender Identity Not on file Sexual Orientation Not on file Plan of Treatment Upcoming Encounters Date Type Department Care Team (Late st Contact Info) Description 01/03/2025 7:40 AM AGRICULTURAL ADVISER Office Visit [facility] Family & Internal Medicine [address] [address] Macey Alvarez DO [address] [place] [address] Health Maintenance Due Date Last Done [...] patient's age to complete this topic Insurance [facility] MEDICARE Care Teams Dry Cell Assembly Machine Tender Relationship Specialty Start Date End Date Macey Alvarez DO [address] [place] [address] PCP - General FAMILY PRACTICE 12/17/24
--- OUTSIDE RECORDS SUMMARY | 2024-12-20 10:54 | XMS_ITS | Encounter Summary ---
Author Organization [facility] Address [address] [place] [address] Care Team Providers Care Rn Hemodialysis Name Role Phone Asif Leal MD Primary Care Provider [phone] Reason for Visit * Reason Onset Date Comments : 67 M, poorly controlled DM , please review 09/22/2023 SPOKE WITH / DR. 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
[2024-12-20] MEDS: INSULIN ASPART (*BKC) 100 UNITS/ML SUB-Q (12:51)
[2024-12-20] MEDS: pyRIDostigmine bromide 30 MG TABLET PO (13:06)
--- NOTE | 2024-12-20 14:22 | P.DS_ITS ---
DS: Admitting Diagnosis Discharge Date 12/20/2024 Admitting Diagnosis Double vision DS: Discharge Diagnosis Discharge Diagnosis (1) Vertical diplopia: Code(s): H53.2 - Diplopia Status: Inactive Assessment and Plan: Patient states that was not a slow onset, he states that he was working on the [place] digging holes with no issues with his vision then went inside rest. He tried to watch TV and noticed that he had double vision. He states that it has been waxing. Better in morning and worse at night. Per the she has noticed him slurring his words without drinking. Patient does have a right eyelid droop within fully opening his eyes. Patient states that he had normal vision briefly after applying ice to his eye. It is not diagnostic however it can being indicative of ocular myasthenia gravis. Head/neck CT unremarkable and CXR unremarkable. Neurology consulted MRI with no acute infarct Echo with bubble study negative for PFO, EF 65-70% Frequent neuro checks UA negative for infection Due to acute onset and waxing and waning symptoms it is unlikely that it is from uncontrolled diabetes Ice pack test with improvement in vision indicative of myasthenia gravis AChR antibodies MuSK pending-likely a send out lab Eye patch Mestinon 30 mg release symptoms within 45 minutes will DC patient on this medication and follow-up with Neurology in 1 month with lab work per official diagnosis (2) DM type 2 (diabetes mellitus, type 2): Qualifiers: Diabetes mellitus complication status: with hyperglycemia Diabetes mellitus senior care insulin use: without senior care use Qualified Code(s): E11.65 - Type 2 diabetes mellitus with hyperglycemia Code(s): E11.9 - Type 2 diabetes mellitus without complications Status: Chronic Assessment and Plan: Blood sugar 304 on admission- A1C 11.1 Patient has a previous history of type 2 diabetes for which he was on medications for some time. Underwent gastric bypass surgery 2 and half years ago and was able to lose 113 lb. Due to the weight loss he was taken off of his diabetes medications. Uncontrolled diabetes could be the cause of his vision issues consult to religious educator and dietitian to re-educate given patient has not been consider diabetic for the past 2 and half years - diabetic diet - hypoglycemia protocol - POC blood glucose ACHS - correct regimen ordered - high dose TIDWM, based off BMI Lantus added (3) High cholesterol: Code(s): E78.00 - Pure hypercholesterolemia, unspecified Status: Chronic Assessment and Plan: - continue atorvastatin 80 mg daily (4) Hypertension: Qualifiers: Hypertension type: primary hypertension Qualified Code(s): I10 - Essential (primary) hypertension Code(s): I10 - Essential (primary) hypertension Status: Chronic Assessment and Plan: - chronic, currently - continue home medications: Amlodipine 10 mg daily, losartan 100 mg daily - monitor Plan Diet: Diabetic GI Prophylaxis: N/a DVT Prophylaxis: SCDs IV fluids: None Lines/Tubes: Peripheral IV Code Status: Full code DS: Summary Hospital Course Reason for hospitalization: Double vision Hospital Course: 69 y/o M with PMH of diabetes, vertigo, HTN, and HLD presents here with raf valencia. The patient presents here from a local urgent care on 12/19 for further evaluation of double vision. He reports onset on Tuesday, 12/15, around 11:30 a.m. Last known well around 11:20 a.m.. He reports he was working in the garden prepping for a get together at his house when he stumbled and almost bowel. He was able to correct in cells and did not sustain any injury. He finished in the yd and went inside when he noticed when looking at the TV that he had double vision. He describes the double vision as if to images were stacked on top of each other. Double vision resolves with closing of one eye but reoccurs when he has both eyes open. Initially he and his 's thought his symptoms were due to allergies as they said his right eyelid was slightly swollen. They tried ophthalmic antihistamines for 2 days without relief and cold compresses without relief. Since onset of double vision he reports he has noticed some worsening balance issues primarily when he is moving from a seated position to a standing position as well as a right eyelid droop. Patient's head CT and MRI were negative for stroke. Patient's echo with bubble study was negative for PFO. Patient was found to have hyperglycemia and A1c of 11.1. He states that he used to be on insulin however he did well with diet and exercise and was taken off of it several years ago. When questioning the patient more about the recent issues. He states that the vision is better in the morning and worse in the evening. His is no stent simple tasks have been home harder to in frustrating in the evening. She also states that he has been slurring his words at night without drinking. Patient was believed have myasthenia gravis that he was given Mestinon after consulting with Neurology. Patient's vision issues had completely resolved with Mestinon. He was discharged home with prescriptions, insulin and follow-up with Neurology in 1 month for official diagnosis. Status at Discharge Functional status at discharge: independent ambulation Overall status at discharge: patient is back to baseline Time Spent with Patient Time attestation: Total time spent providing and/or coordinating discharge services: Time spent: Greater than 30 minutes Exam Narrative: General: well appearing, appears stated age. HEENT: normocephalic, atraumatic. Mucous membranes moist. EOMI, PERRLA, bilateral sclera anicteric, no conjunctival injection. Neck supple without JVD, lymphadenopathy, or bruit. Right eyelid droop, symmetrical face Respiratory: clear bilaterally. No rales/rhonic/wheezes. Cardiovascular: Regular rate and rhythm, normal S1-S2. No murmurs, rubs, or clicks. PMI is nondisplaced, capillary refill less than 3 second. Abdomen: Soft, round, no pulsatile masses, nondistended and nontender. No rebound, no guarding. Bowel sounds present to all four quadrants. No high pitch or tinkling sounds, resonant to percussion. Extremities: No cyanosis, clubbing, or edema present. Pulses are palpable 2/2. Active ROM to all four extremities. Neuro: Alert and orientated x 4. PERRLA. Cranial nerves 2-12 intact without focal deficit. Skin: Warm, dry, and intact, without rash, erythema, or lesion. Psych: pleasant, cooperative, normal speech, normal affect, no hallucinations, no dysarthia DS: Data Data Completed and Pending Labs on day of discharge: Labs from last 24 hours 12/20/24 12/20/24 12/20/24 11:55 08:09 03:42 WBC 7.1 RBC 4.69 Hgb 10.9 L Hct 36.0 L MCV 76.8 L MCH 23.2 L MCHC 30.3 L RDW 16.8 H Plt Count 225 MPV 9.4 Immature Gran % (Auto) 0.4 Neut % (Auto) 64.3 Lymph % (Auto) 20.5 Levy % (Auto) 8.5 Eos % (Auto) 4.9 H Baso % (Auto) 1.4 H Lymph # (Auto) 1.45 Levy # (Auto) 0.6 Eos # (Auto) 0.4 H Baso # (Auto) 0.1 Abs Immat Gran (auto) 0.03 Absolute Neuts (auto) 4.6 Absolute Nucleated RBC 0.000 Nucleated RBC % 0.0 Sodium Potassium Chloride Carbon Dioxide Anion Gap BUN Creatinine Estim Creat Clear Calc Estimated GFR Glucose POC Capillary Glucose 215 H 183 H Hemoglobin A1c 11.1 H Calcium Triglycerides Cholesterol LDL Cholesterol Direct HDL Direct Urine Color Urine Appearance Urine pH Ur Specific [place] Urine Protein Urine Glucose (UA) Urine Ketones Ur Blood (Man) Urine Nitrate Urine Bilirubin Urine Urobilinogen Leukocyte Esterase Rfl Urine RBC Urine WBC Ur Squamous Epith Cells Urine Bacteria Urine Casts Hyaline Casts Striated Muscle Ab Acetylchol Rcpt Block Ab Acetylchol Rcpt Bind Ab Acetylchol Rcpt Modu Ab MuSK Reflex Information 12/20/24 12/19/24 12/19/24 03:41 19:38 16:31 WBC RBC Hgb Hct MCV MCH MCHC RDW Plt Count MPV Immature Gran % (Auto) Neut % (Auto) Lymph % (Auto) Levy % (Auto) Eos % (Auto) Baso % (Auto) Lymph # (Auto) Levy # (Auto) Eos # (Auto) Baso # (Auto) Abs Immat Gran (auto) Absolute Neuts (auto) Absolute Nucleated RBC Nucleated RBC % Sodium 134 L Potassium 4.1 Chloride 105 Carbon Dioxide 24 Anion Gap 5 BUN 15 Creatinine 0.97 Estim Creat Clear Calc 77 Estimated GFR > 60 Glucose 179 H POC Capillary Glucose 241 H 235 H Hemoglobin A1c Calcium 9.0 Triglycerides 158 H Cholesterol 170 LDL Cholesterol Direct 74 HDL Direct 51 Urine Color Urine Appearance Urine pH Ur Specific [place] Urine Protein Urine Glucose (UA) Urine Ketones Ur Blood (Man) Urine Nitrate Urine Bilirubin Urine Urobilinogen Leukocyte Esterase Rfl Urine RBC Urine WBC Ur Squamous Epith Cells Urine Bacteria Urine Casts Hyaline Casts Striated Muscle Ab Pending Acetylchol Rcpt Block Ab Pending Acetylchol Rcpt Bind Ab Pending Acetylchol Rcpt Modu Ab Pending MuSK Reflex Information Pending 12/19/24 11:14 WBC RBC Hgb Hct MCV MCH MCHC RDW Plt Count MPV Immature Gran % (Auto) Neut % (Auto) Lymph % (Auto) Levy % (Auto) Eos % (Auto) Baso % (Auto) Lymph # (Auto) Levy # (Auto) Eos # (Auto) Baso # (Auto) Abs Immat Gran (auto) Absolute Neuts (auto) Absolute Nucleated RBC Nucleated RBC % Sodium Potassium Chloride Carbon Dioxide Anion Gap BUN Creatinine Estim Creat Clear Calc Estimated GFR Glucose POC Capillary Glucose Hemoglobin A1c Calcium Triglycerides Cholesterol LDL Cholesterol Direct HDL Direct Urine Color Yellow Urine Appearance Clear Urine pH 5.[address] 1.040 H Urine Protein 3+ H Urine Glucose (UA) 3+ H Urine Ketones Negative Ur Blood (Man) Negative Urine Nitrate Negative Urine Bilirubin Negative Urine Urobilinogen 0.2 Leukocyte Esterase Rfl Negative Urine RBC 0-2 Urine WBC 0-5 Ur Squamous Epith Cells None seen Urine Bacteria None seen Urine Casts Not present Hyaline Casts 3-4 H Striated Muscle Ab Acetylchol Rcpt Block Ab Acetylchol Rcpt Bind Ab Acetylchol Rcpt Modu Ab MuSK Reflex Information Discharge Plan Discharge Consulting providers: Martín Jefferson; Yoseph Sifuentes; Jose Manuel Way; Clementina Arredondo; Mina Fong; Bc Stiles; Aroldo Mojica Discharging Clinician: Mary New Anticipated Discharge Date/Time: 12/20/24 14:25 Patient Disposition: Home Activity: may shower Diet: diabetic Discharge Instructions: Discharge instructions: Take medications as prescribed New medications prescribed: You have been started on short-acting insulin and long-acting insulin Pyridostigmine bromide (Mestinon) for myasthenia gravis you will slowly increase this medication, the medication will relieve symptoms for about 4 hours. Please carry meds with the a all times. Start with a half a tab 2 times a day for 1 week Increase to half a tab 3 times a day for 1 week Increase to 1 tab 2 times a day for 1 week Increase to 1 tab 3 times a day until follow with Neurology for further recommendations Your recommended to take afternoon naps at least 30 minutes. Most patients complain of abdominal pain with this medication is 1. Side effect, taking few with this medication can help relieve some of that. Most patients feel of the side effects are not as bothersome as myasthenia gravis symptoms. Myasthenia gravis can cause severe muscle weakness, this can also cause weakness of the diaphragm if you are having severe shortness of breath please take 1x 60 g tablet of Mestinon and called 911. You are activity as tolerated Monitor blood pressures Avoid social areas, you wear a mask when in social settings Encouraged to continue with yearly vaccinations Return to the emergency department if he developed sudden shortness of breath, chest pain, nausea, vomiting, upset stomach or intractable diarrhea Return to the emergency department if you develop fever greater than 101.5 Follow-up with: Your primary care physician within 1-2 weeks for post hospitalization check up Recommend follow-up with a snubber your hemoglobin A1c is 11.1 Follow-up with neurology in 1 month Thank you for choosing [facility] for your healthcare needs Patient Instructions: Antibiotic Form, Pyridostigmine [place] (By mouth), Myasthenia Gravis (DC) Patient Language: Kinyarwanda Stand Alone Forms: General Discharge Information Follow-up/Referrals: Abdon Jones MD [Physician, Neurology] - 4 Weeks Discharge Medications: New pyridostigmine bromide [Mestinon] 60 mg tablet 60 mg PO TID 30 Days Qty: 90 0RF (DME) blood-glucose meter [OneTouch Verio Flex meter] [facility] [place] Qty: 1 0RF Rx Instructions: May substitute to in-stock meter and/or covered by insurance. Use As Directed (DME) OneTouch Verio test strips Strip Qty: 1 0RF Rx Instructions: May substitute to in-stock and/or covered by insurance strips. Use As Directed (DME) pen needle, diabetic 32 gauge x 1/4 Needle Qty: 1 0RF Rx Instructions: As Directed (DME) lancets [OneTouch Delica Plus Lancet] 30 gauge [facility] [place] Qty: 1 0RF Rx Instructions: May substitute to in-stock and/or covered by insurance lancets. Use As Directed insulin glargine [Lantus U-100 Insulin] 100 unit/mL Solution 17 unit subcut HS Qty: 10 0RF insulin aspart U-100 [Novolog U-100 Insulin aspart] 100 unit/mL Solution 4 - 8 unit subcut TIDWM Qty: 10 0RF Protocol: Insulin Corrective High-Dose Condition: glucose < 70 mg/dl Dose/Route: Follow hypoglycemia order Condition: glucose 70-200 mg/dl Dose/Route: No additional insulin Condition: glucose 201-250 mg/dl Dose/Route: 4 units sub-Q Condition: glucose 251-300 mg/dl Dose/Route: 5 units sub-Q Condition: glucose 301-350 mg/dl Dose/Route: 6 units sub-Q Condition: glucose 351-400 mg/dl Dose/Route: 8 units sub-Q Condition: glucose > 400 mg/dl Dose/Route: Call Protocol Text: *No Correction Dose at Bedtime* Rx Instructions: glucose < 70 mg/dl Follow hypoglycemia order glucose 70-200 mg/dl No additional insulin glucose 201-250 mg/dl 4 units sub-Q glucose 251-300 mg/dl 5 units sub-Q glucose 301-350 mg/dl 6 units sub-Q glucose 351-400 mg/dl 8 units sub-Q glucose > 400 mg/dl Call Continued atorvastatin 80 mg tablet 80 mg PO HS amlodipine 10 mg tablet 10 mg PO DAILY losartan 100 mg tablet 100 mg PO DAILY Mag Glycinate 100 mg tablet 100 mg PO HS Date of admission: 12/19/24 14:27 Primary Care Provider: Kim,Macey Admitting Provider: Rhona Melo Attending physician on admission: Mary New Condition: Stable
--- NOTE | 2024-12-20 16:08 | WPDNEURCNPN ---
Assessment and Plan Assessment and plan (1) Ptosis: Code(s): H02.409 - Unspecified ptosis of unspecified eyelid Status: Acute Assessment and Plan: the patient appears to have partial ptosis on the right side however the pupils were equal reacting and extraocular movements did not show any patient. Patient has subjective feeling of diplopia when looking up and also to the left or right extreme gaze. (2) Diplopia: Code(s): H53.2 - Diplopia Status: Acute Assessment and Plan: As described above (3) DM type 2 (diabetes mellitus, type 2): Qualifiers: Diabetes mellitus ad terminal makeup operator insulin use: without ad terminal makeup operator use Diabetes mellitus complication status: with hyperglycemia Qualified Code(s): E11.65 - Type 2 diabetes mellitus with hyperglycemia Code(s): E11.9 - Type 2 diabetes mellitus without complications Status: Chronic Assessment and Plan: patient had bariatric surgeon after that he apparently did well however it was noted that his hemoglobin A1c was very high at 11.1. LDL was 74. (4) Hypertension: Qualifiers: Hypertension type: primary hypertension Qualified Code(s): I10 - Essential (primary) hypertension Code(s): I10 - Essential (primary) hypertension Status: Chronic Plan I have reviewed MRI of the brain which shows mild matter changes however no acute abnormalities were seen. Given the history of diabetes it is reasonable to consider an isolated cranial nerve palsy or brainstem infarct however there is no clear evidence for these. Based upon above findings I would suggest a Tensilon test however this is not available and hence I would suggest ACH-R antibody testing. During the interim we can try pyridostigmine 30 mg 2 to 3 times a day this may be increased up to 60 mg 3 times a day. He is not on a beta-dana however he should be advised to follow his heart rate closely headache cardiac can occur. He should also watch his blood pressure. I will be glad to see him for follow-up in 2 -3 weeks time office. Consult date: 12/20/24 HPI: Lul Yoder IV is a 69 year old male with history of diabetes mellitus presented to the hospital with onset of diplopia. Symptoms started on Tuesday last week. He also sees double in certain positions dye. The right eyelid is droopy. He also had some sense of imbalance however he never had any symptoms such as this in the past. He has undergone several investigations including his CT scan of the brain and CT angiogram of the head and neck which did not show any significant abnormalities. MRI of the brain was performed which shows white matter changes however no acute abnormalities seen. Patient denies any difficulty speech or swallowing. He denies any weakness in upper lower limbs. Patient denies any headache, nausea or vomiting. Review of Systems Review of Systems: All systems reviewed & are unremarkable except as noted in HPI and below PMFSH Past Medical History Medical History (Updated 12/20/24 @ 16:14 by Yoseph Sifuentes MD) Ptosis History of osteomyelitis Back History of diabetes mellitus Vertigo Hypertension High cholesterol Surgical History Surgical History History of back surgery History of right shoulder replacement History of cholecystectomy H/O bariatric surgery Social History Social History Smoking status: Light tobacco smoker Tobacco type: cigars Additional smoking assessment comments: one cigar once to twice a month. Alcohol intake: current Substance use: never Lack of Transportation: No Lack of Food: Never True Current Housing: I Have Housing Concerned About Future Housing: No Difficulty Paying Gas/Electric Bills: No Difficulty Paying for Meds: No Currently Unemployed: No Education: Decline to Answer Difficulty w/ Childcare or Family Care: No Spiritual care concerns: No Meds Home Medications and Allergies Home Medications ?Medication ?Instructions ?Recorded ?Confirmed ?Type amlodipine 10 mg tablet 10 mg PO DAILY 12/19/24 12/19/24 History atorvastatin 80 mg tablet 80 mg PO HS 12/19/24 12/19/24 History losartan 100 mg tablet 100 mg PO DAILY 12/19/24 12/19/24 History magnesium glycinate 100 mg (as 100 mg PO HS 12/19/24 12/19/24 History glycinate) tablet (Mag Glycinate) blood sugar diagnostic (OneTouch #1 pkg 12/20/24 Rx Verio test strips) blood-glucose meter (OneTouch #1 pkg 12/20/24 Rx Verio Flex Meter) lancets 30 gauge (OneTouch Delica #1 pkg 12/20/24 Rx Plus Lancet) pen needle, diabetic 32 gauge x #1 pkg 12/20/24 Rx 1/4 Allergies Allergy/AdvReac Type Severity Reaction Status Date / Time No Known Allergies Allergy Verified 12/19/24 16:08 Vital Signs Vital Signs - 24 hr 12/19/24 18:18 12/19/24 20:00 12/19/24 20:18 Temperature 97.5 F L Pulse Rate 58 L 60 Respiratory Rate 18 Blood Pressure 153/73 H Pulse Oximetry 99 Oxygen Delivery Room Air 12/20/24 00:00 12/20/24 04:00 12/20/24 06:00 Temperature 97.5 F L Pulse Rate 55 L 55 L 62 Respiratory Rate 20 Blood Pressure 138/73 Pulse Oximetry 100 Oxygen Delivery 12/20/24 08:00 12/20/24 08:00 12/20/24 12:00 Temperature Pulse Rate 82 70 Respiratory Rate Blood Pressure Pulse Oximetry Oxygen Delivery Room Air 12/20/24 14:00 Temperature 97.6 F Pulse Rate 70 Respiratory Rate 19 Blood Pressure 130/70 Pulse Oximetry 99 Oxygen Delivery Exam Const: General: cooperative, healthy appearing and comfortable HENMT: Head: atraumatic Mouth: Yes oropharynx normal Eyes: Alignment and Position: alignment normal and position normal EOM: EOMs intact bilaterally Other: Patient reported seeing double when looking up and particularly to do left or right-sided when looking up. Apart to ptosis was noted on the right side. Pupils were equal reacting. Neck: Neck: normal visual inspection and supple Resp: Effort & Inspection: normal respiratory effort Cardio: Heart sounds: S1 normal heart sound present and S2 normal heart sound present Skin: General skin exam: normal color Neuro: Cranial nerves: Yes CN's II-XII intact bilaterally ( Partial ptosis of the right side), Yes facial symmetry and Yes Midline tongue present Cognition (Neuro): normal cognition Speech: normal speech Sensory Exam: normal sensation Coordination: [id number] test normal and Normal rapid alternating movements of the distal upper extremity present (Neuro) Extrem: General: normal to inspection Psych: Appearance: well kempt Mental Status: mental status grossly normal Speech and movement: Normal speech and movement present Affect: normal affect Thought process: Normal thought process present Thought content: Yes Normal thought content present Insight: Good insight present (Psych) Judgement: Good judgement present (Psych) Results Labs 12/20/24 03:42 12/20/24 03:41 Labs: Short CBC 12/20/24 Range/Units 03:42 WBC 7.1 (4.5-10.0) K/mm3 Hgb 10.9 L (14.0-18.0) g/dL Hct 36.0 L (42.0-52.0) % Plt Count 225 (150-375) k/mm3 [facility] 12/20/24 03:41 Sodium 134 L Potassium 4.1 Chloride 105 Carbon Dioxide 24 BUN 15 Creatinine 0.97 Glucose 179 H Calcium 9.0
--- NOTE | 2024-12-20 17:20 | PC.NURSE ---
Diabetic education provided. Use of insulin, pens and needles. Diabetic informational packets and phone number to the clinical staff educator provided. Proper storage and safety of insulin and supplies. Pt verbalized understanding. Pt was a diabetic years ago and states he is comfortable with checking sugars and administering medication.
--- NOTE | 2024-12-20 17:47 | PC.NURSE ---
Call made to pharmacy to ensure insulin was in pens and needles. All medications available and ready for patient. Patient contacted and is aware medication is fixed and ready to be picked up .
--- NOTE | 2024-12-21 14:13 | PCCDE ---
12/21/24: DM educator courtesy call placed. Pt denies questions re: DM stating he's familiar, had DM of course always have it treated x ~ 10 yrs. Post gastric surgery followed by >100lb wt loss, meds DC'd. Recently moved to [facility], found new PCP and has appt 01/03/25. Advised of outpatient DSMT/MNT services and procedure since it's been >10 yrs for DM focus.
== END 2024-12-20 17:35 | disposition home or self-care (01) ==
LOC: ANHED 11:19 → ANH3MED 14:51
PROVIDERS: Psychiatry & Neurology Neurology; Student in an Organized Health Care Education/Training Program; Admitting Provider General Practice; Emergency Provider Physician Assistant; Visit Provider Nurse Practitioner Gerontology
DX: H53.2 Diplopia (principal); H02.401 Unspecified ptosis of right eyelid; E11.65 Type 2 diabetes mellitus with hyperglycemia; I10 Essential (primary) hypertension; E78.00 Pure hypercholesterolemia, unspecified; Z96.611 Presence of right artificial shoulder joint; Z98.84 Bariatric surgery status
CPT/HCPCS: 36415; 70496; 70498; 70553; 71045; 80048; 80053; 80061; 80307; 81001; 82948; 83036; 84484; 85025; 85610; 85730; 93005; 96374; 96375; 99285; A9270; A9577; C8929; G0378; J1815; Q9957; Q9967